=== PATIENT | female | born 1935 | race Caucasian/White ===

== ENCOUNTER 2020-10-14 19:40 | Inpatient (IN) ==
[2020-10-14 21:51] LABS: Basophils % (Auto) 0.6 % (0.0-2.0); Eosinophils # (Auto) 0.23 K/mcL (0.00-0.70); Eosinophils % (Auto) 1.5 % (0.0-7.0); Hematocrit 35.9 % (36.0-48.0); Hemoglobin 11.3 g/dL (12.0-15.0); Lymphocytes % (Auto) 12.3 % (15.0-49.0); Mean Cell Volume 90.7 fL (80.0-100.0); Mean Corpuscular HGB Conc 31.5 g/dL (31.0-36.0); Mean Platelet Volume 10.4 fL (7.4-10.4); Monocytes # (Auto) 0.93 K/mcL (0.10-0.90); Neutrophils % (Auto) 79.6 % (38.0-78.0); Platelet Count 788 K/mcL (140-440); RBC 3.96 M/mcL (4.00-5.20); Red Cell Distribution Width 16.8 % (11.5-14.5); WBC 15.4 K/mcL (4.5-11.0)
[2020-10-14 22:11] LABS: ALT/SGPT 7 U/L (<40); AST/SGOT 14 U/L (<32); Albumin 3.4 gm/dL (3.2-5.2); Alkaline Phosphatase 129 U/L (39-117); Bilirubin,Total < 0.2 mg/dL (0.1-1.0); Blood Urea Nitrogen 40 mg/dL (8-23); Carbon Dioxide 34 mmol/L (22-30); Chloride 95 mmol/L (96-108); Globulin 3.3 gm/dL (2.2-3.7); Glomerular Filtration Rate 31; Glucose 137 mg/dL (70-105)
[2020-10-15] MEDS ORDERED: morphine 2 MG/ML VIAL IV PRN ×2 (00:17→11:19)
[2020-10-15] MEDS ORDERED: ONDANSETRON 4 MG/2 ML VIAL IV PRN ×4 (00:17→11:19)
[2020-10-15] MEDS: metroNIDAZOLE 500 MG/100 ML BAG IV SCH ×4 (00:26→22:13)
--- NOTE | 2020-10-15 00:27 | Emergency Department Note ---
HPI General Chief complaint: Chest Pain Stated complaint: abdominal pain Time Seen by Provider: 10/14/20 20:36 Source: EMS Mode of arrival: EMS Limitations: no limitations History of Present Illness HPI Narrative: Narrative: Patient with a history of hypertension and CHF A. fib, CVA [facility] for an episode of nonspecific low substernal chest pain she said it developed after eating, associated with some epigastric/general upper abdominal pain, described as achy and sharp, lasted about an hour and resolved currently. No nausea no vomiting no fever no chills no shortness of breath. No genitourinary symptoms no new leg swelling Related Data Home Medications Medication Instructions Recorded Confirmed levothyroxine 75 mcg PO DAILY 05/11/16 10/15/20 acetaminophen 650 mg PO Q6H PRN 10/15/20 10/15/20 apixaban [Eliquis] 2.5 mg PO BID 10/15/20 10/15/20 bisacodyl [Dulcolax (bisacodyl)] 10 mg OR PRN PRN 10/15/20 10/15/20 gabapentin 100 mg PO TID 10/15/20 10/15/20 hydrocodone-acetaminophen 1 tab PO QHS 10/15/20 10/15/20 ipratropium-albuterol [Combivent 1 puff INHALATION DAILY 10/15/20 10/15/20 Respimat] metolazone 2.5 mg PO WEEKLY 10/15/20 10/15/20 metoprolol succinate 25 mg PO BID 10/15/20 10/15/20 morphine 1 mg PO Q2HP PRN 10/15/20 10/15/20 nitrofurantoin monohyd/m-cryst 100 mg PO BID 10/15/20 10/15/20 [Macrobid] nitroglycerin 0.4 mg SUBLINGUAL Q5M PRN 10/15/20 10/15/20 potassium chloride 20 meq PO QDAY 10/15/20 10/15/20 simethicone [Simethicone-80] 80 mg PO Q6HP PRN 10/15/20 10/15/20 Allergies Allergy/AdvReac Type Severity Reaction Status Date / Time Penicillins Allergy Intermediate Swelling Verified 10/14/20 19:41 amlodipine [From Norvasc] Allergy Unknown Verified 10/14/20 19:41 potassium chloride Allergy Unknown Verified 02/13/19 14:03 Review of Systems ROS ROS Narrative: Narrative: At least 10 systems reviewed and otherwise acutely negative except as in the [facility] Narrative Patient History Narrative: Narrative: Medical/Surgical/Family History All Active Problems Chest pain (Acute) UTI (urinary tract infection) (Acute) Weakness (Acute) Accelerated essential hypertension (Acute) Non-cardiac chest pain (Acute) Hypotension (Acute) Congestive heart failure (Acute) Acute cholecystitis (Acute) Medical History Chest pain Social History Smoking Status: Former smoker Exam Narrative Narrative: Narrative: Constitutional: normally developed, no acute distress . Head: Normocephalic, atraumatic, Eyes: No Icterus, ENT: Moist mucus membranes, Neck: Supple, Cardiac: Normal heart sounds, palpable radial and dorsalis pedis pulses, n chronic lower extremity edema Pulmonary: Normal respiratory effort. Breath sounds clear, no wheeze, rhonchi, rales, Gastrointestinal: Abdomen soft, non-distended, patient does have some mild generalized abdominal tenderness all across to her upper abdomen left upper quadrant, epigastric, right upper quadrant but negative clinical Oleary's Musculoskeletal: No gross deformities, well perfused Skin: warm, dry Neuro: Alert and orientedx1-2. General Limitations: no limitations Course Vital Signs Vital signs: Vital Signs Temperature 37.0 C 10/14/20 19:41 Pulse Rate 64 10/14/20 19:41 Respiratory Rate 20 10/14/20 19:41 Pulse Oximetry (%) 92 10/14/20 19:41 Temperature 37.0 C 10/14/20 19:41 Pulse Rate 50 L 10/15/20 00:05 Respiratory Rate 12 10/15/20 00:05 Blood Pressure 154/68 10/15/20 00:05 Pulse Oximetry (%) 93 10/15/20 00:05 [facility] MDM Narrative Medical decision making narrative: Narrative: Patient presented with that vague nonspecific episode of some brief substernal epigastric pain she reports after eating, since improved differential includes but not limited to ACS, gastritis, GERD, hepatobiliary or pancreatic disease, doubt dissection, PE. Pain currently resolved work-up was initiated. The prison gave her nitroglycerin prior to arrival CBC does show leukocytosis of 15 although this seems somewhat consistent with her previous studies done recently, will await further diagnostic results to assess for any possible acute infection Electrolytes show her known CKD creatinine baseline 1.5 LFTs bilirubin lipase within normal, Initial troponin is negative, will trend Preliminary report of her CT does show suspected acute cholecystitis, also some nonspecific findings suggestive of underlying metastatic malignancy in the thorax and abdomen and adnexa with possible mass in right breast I did discuss these findings with the patient and her daughter, has a known history of benign mass to her right breast, no known active malignancy, patient states she had a history of isolated uterine cancer years ago that was simply treated with a hysterectomy at the time. Also obtained a right upper quadrant ultrasound which does confirm findings suggestive of acute cholecystitis included cholelithiasis, sludge, gallbladder wall thickening 5.1 mm, no pericholecystic fluid, does show CBD dilation 9.8 mm Considering her presentation and the imaging results confirming acute cholecy stitis I did consult with Dr. Vargas with surgery for possible cholecystectomy, patient was also made n.p.o. and started on cefepime and Flagyl as she is allergic to Zosyn, he did request patient be admitted to medicine given her multiple comorbidities, so I have spoken with Dr. Rizo who accepts admission Patient's daughter Chiqui Fish is her primary decision maker, she can be reached at [phone]. I have updated the patient and her daughter regarding our findings and plan today and they are agreeable to plan Lab Data Result diagrams: 10/14/20 20:51 10/14/20 20:51 Labs: Lab Results 10/14/20 10/14/20 10/14/20 Range/Units 20:38 20:51 20:51 WBC 15.4 H (4.5-11.0) K/mcL RBC 3.96 L (4.00-5.20) M/mcL Hgb 11.3 L (12.0-15.0) g/dL Hct 35.9 L (36.0-48.0) % MCV 90.7 (80.0-100.0) fL MCH 28.5 (26.0-34.0) pg MCHC 31.5 (31.0-36.0) g/dL RDW 16.8 H (11.5-14.5) % Plt Count 788 H (140-440) K/mcL MPV 10.4 (7.4-10.4) fL Neut % (Auto) 79.6 H (38.0-78.0) % Lymph % (Auto) 12.3 L (15.0-49.0) % Delta % (Auto) 6.0 (1.0-12.0) % Eos % (Auto) 1.5 (0.0-7.0) % Baso % (Auto) 0.6 (0.0-2.0) % Lymph # (Auto) 1.90 (1.50-4.80) K/mcL Delta # (Auto) 0.93 H (0.10-0.90) K/mcL Eos # (Auto) 0.23 (0.00-0.70) K/mcL Baso # (Auto) 0.10 (0.00-0.20) K/mcL Absolute Neutrophils 12.28 H (1.80-8.00) K/mcL Sodium 139 (133-145) mmol/L Potassium 3.9 (3.3-5.1) mmol/L Chloride 95 L (96-108) mmol/L Carbon Dioxide 34 H (22-30) mmol/L Anion Gap 10.0 (8.0-16.0) BUN 40 H (8-23) mg/dL Creatinine 1.5 H (0.6-1.1) mg/dL POC Creatinine 2.0 H (0.6-1.2) mg/dL GFR Calculation 31 Glucose 137 H (70-105) mg/dL Calcium 9.0 (8.6-10.4) mg/dL Total Bilirubin < 0.2 (0.1-1.0) mg/dL AST 14 (<32) U/L ALT 7 (<40) U/L Alkaline Phosphatase 129 H (39-117) U/L Troponin T (<0.03) ng/mL Total Protein 6.7 (5.9-8.4) gm/dL Albumin 3.4 (3.2-5.2) gm/dL Globulin 3.3 (2.2-3.7) gm/dL Albumin/Globulin Ratio 1.0 (1.0-2.3) Lipase 42 (7-60) U/L 10/14/20 Range/Units 20:51 WBC (4.5-11.0) K/mcL RBC (4.00-5.20) M/mcL Hgb (12.0-15.0) g/dL Hct (36.0-48.0) % MCV (80.0-100.0) fL MCH (26.0-34.0) pg MCHC (31.0-36.0) g/dL RDW (11.5-14.5) % Plt Count (140-440) K/mcL MPV (7.4-10.4) fL Neut % (Auto) (38.0-78.0) % Lymph % (Auto) (15.0-49.0) % Delta % (Auto) (1.0-12.0) % Eos % (Auto) (0.0-7.0) % Baso % (Auto) (0.0-2.0) % Lymph # (Auto) (1.50-4.80) K/mcL Delta # (Auto) (0.10-0.90) K/mcL Eos # (Auto) (0.00-0.70) K/mcL Baso # (Auto) (0.00-0.20) K/mcL Absolute Neutrophils (1.80-8.00) K/mcL Sodium (133-145) mmol/L Potassium (3.3-5.1) mmol/L Chloride (96-108) mmol/L Carbon Dioxide (22-30) mmol/L Anion Gap (8.0-16.0) BUN (8-23) mg/dL Creatinine (0.6-1.1) mg/dL POC Creatinine (0.6-1.2) mg/dL GFR Calculation Glucose (70-105) mg/dL Calcium (8.6-10.4) mg/dL Total Bilirubin (0.1-1.0) mg/dL AST (<32) U/L ALT (<40) U/L Alkaline Phosphatase (39-117) U/L Troponin T 0.02 (<0.03) ng/mL Total Protein (5.9-8.4) gm/dL Albumin (3.2-5.2) gm/dL Globulin (2.2-3.7) gm/dL Albumin/Globulin Ratio (1.0-2.3) Lipase (7-60) U/L ED POC Tests ED POC Tests: TOD - SARS Antigen Negative Discharge Plan Patient/Caregiver Discharge Instructions Pt seen by EDITOR BOOK/PA only: No Clinical Impression: Acute cholecystitis Patient Disposition: Xfer As Inpt ([facility]) Follow up with: Jaime Gonzáles MD [Primary Care Provider] - Prescriptions: No Action levothyroxine 50 MCG tablet 75 mcg PO DAILY RF: 0 metoprolol succinate 25 mg Capsule,Sprinkle,Er 24hr 25 mg PO BID RF: 0 hydrocodone-acetaminophen 5-325 mg Tablet 1 tab PO QHS RF: 0 bisacodyl [Dulcolax (bisacodyl)] 10 mg Suppository 10 mg OR PRN PRN (Reason: Pain) RF: 0 gabapentin 100 mg Capsule 100 mg PO TID RF: 0 nitrofurantoin monohyd/m-cryst [Macrobid] 100 mg Capsule 100 mg PO BID RF: 0 Eliquis 2.5 mg Tablet 2.5 mg PO BID RF: 0 Combivent Respimat 20-100 mcg/actuation Mist 1 puff INHALATION DAILY RF: 0 metolazone 2.5 mg Tablet 2.5 mg PO WEEKLY RF: 0 morphine 20 mg/5 mL (4 mg/mL) Solution 1 mg PO Q2HP PRN (Reason: Pain) RF: 0 nitroglycerin 0.4 mg Tablet, Sublingual 0.4 mg SUBLINGUAL Q5M PRN (Reason: Chest Pain) RF: 0 simethicone [Simethicone-80] 80 mg Tablet,Chewable 80 mg PO Q6HP PRN (Reason: epigastric pain) RF: 0 potassium chloride 20 mEq Tablet Extended Release 20 meq PO QDAY RF: 0 acetaminophen 325 mg Capsule 650 mg PO Q6H PRN (Reason: Pain) RF: 0
[2020-10-15] MEDS: CEFEPIME 2 GM VIAL IV SCH ×4 (00:35→20:59)
[2020-10-15 02:10] LABS: INR 1.3 (0.9-1.1); Partial Thromboplastin Time 36.4 sec (20.0-37.0); Prothrombin Time 16.8 sec (11.9-14.5)
--- NOTE | 2020-10-15 07:40 | Internal Med History&Physical ---
HPI History of Present Illness Patient information: Note initiated : 10/15/20 at 7:36 am Service Date, if different from initiated Date: [] Patient: Gladis Lim a 85 y/o F admitted on 10/15/20 for abdominal pain. Chief Complaint: [] History of present illness: Ms. Lim is a 85 year old F Presents with a low chest pain/abdominal pain in the epigastric and upper abdomen described as are achy and sharp and seem to develop after eating. In the ED she was found have a leukocytosis and had a CT abdomen pelvis and a ultrasound which showed acute cholecystitis. She has a history of A. fib chronic kidney disease hypothyroidism possibly question history of stroke. Surgery was contacted and asked hospitalist to comanage given comorbidities. Review of Systems: Pertinent positives as above. Denies headache/fever/chills/nausea/vomiting/chest pain/cough/dyspnea/diarrhea. Remaining 10 point review of system reviewed negative PFSH PFSH All Active Problems Chest pain (Acute) UTI (urinary tract infection) (Acute) Weakness (Acute) Accelerated essential hypertension (Acute) Non-cardiac chest pain (Acute) Hypotension (Acute) Congestive heart failure (Acute) Acute cholecystitis (Acute) Medical History Chest pain MEDS/ALLERGIES Home Medications and Allergies Home Medications Medication Instructions Recorded Confirmed Type levothyroxine 75 mcg PO DAILY 05/11/16 10/15/20 History acetaminophen 650 mg PO Q6H PRN 10/15/20 10/15/20 History apixaban [Eliquis] 2.5 mg PO BID 10/15/20 10/15/20 History bisacodyl [Dulcolax (bisacodyl)] 10 mg [facility] PRN PRN 10/15/20 10/15/20 History gabapentin 100 mg PO TID 10/15/20 10/15/20 History hydrocodone-acetaminophen 1 tab PO QHS 10/15/20 10/15/20 History ipratropium-albuterol [Combivent 1 puff INHALATION DAILY 10/15/20 10/15/20 History Respimat] metolazone 2.5 mg PO WEEKLY 10/15/20 10/15/20 History metoprolol succinate 25 mg PO BID 10/15/20 10/15/20 History morphine 1 mg PO Q2HP PRN 10/15/20 10/15/20 History nitrofurantoin monohyd/m-cryst 100 mg PO BID 10/15/20 10/15/20 History [Macrobid] nitroglycerin 0.4 mg SUBLINGUAL Q5M PRN 10/15/20 10/15/20 History potassium chloride 20 meq PO QDAY 10/15/20 10/15/20 History simethicone [Simethicone-80] 80 mg PO Q6HP PRN 10/15/20 10/15/20 History Allergies Allergy/AdvReac Type Severity Reaction Status Date / Time Penicillins Allergy Intermediate Swelling Verified 10/14/20 19:41 amlodipine [From [facility]] Allergy Unknown Unknown Verified 10/15/20 07:41 potassium chloride Allergy Unknown Unknown Verified 10/15/20 07:41 EXAM Constitutional Vitals: Temp Pulse Resp BP Pulse Ox 97.1 F 48 L 16 132/66 96 10/15/20 04:22 10/15/20 04:22 10/15/20 04:22 10/15/20 04:22 10/15/20 04:22 Exam: General: Alert, Awake, No acute Distress Eyes/N/T: EOMI, PERRL, dMM Head/Neck: neck supple, normocephalic atraumatic CV: regular, No murmurs, normal s1/s2 Pulm: Clear b/l, no wheezing/rhonchi/rales Abd: soft, tender, +BS x4 Ext: no clubbing/cyanosis/edema Neuro: Alert, no focal deficits, moves all extremities, CN 2-12 grossly intact, symmetrical strength b/l upper/lower, sensations intact b/l upper/lower Skin: warm/dry DATA Data Completed and Pending Labs: Labs from last 24 hours 10/15/20 10/15/20 10/14/20 00:40 00:40 20:51 WBC RBC Hgb Hct MCV MCH MCHC RDW Plt Count MPV Neut % (Auto) Lymph % (Auto) [place] % (Auto) Eos % (Auto) Baso % (Auto) Lymph # (Auto) [place] # (Auto) Eos # (Auto) Baso # (Auto) Absolute Neutrophils PT 16.8 H INR 1.3 H APTT 36.4 Sodium Potassium Chloride Carbon Dioxide Anion Gap BUN Creatinine POC Creatinine GFR Calculation Glucose Calcium Total Bilirubin AST ALT Alkaline Phosphatase Troponin T 0.02 0.02 Total Protein Albumin Globulin Albumin/Globulin Ratio Lipase 10/14/20 10/14/20 10/14/20 20:51 20:51 20:38 WBC 15.4 H RBC 3.96 L Hgb 11.3 L Hct 35.9 L MCV 90.7 MCH 28.5 MCHC 31.5 RDW 16.8 H Plt Count 788 H MPV 10.4 Neut % (Auto) 79.6 H Lymph % (Auto) 12.3 L [place] % (Auto) 6.0 Eos % (Auto) 1.5 Baso % (Auto) 0.6 Lymph # (Auto) 1.90 [place] # (Auto) 0.93 H Eos # (Auto) 0.23 Baso # (Auto) 0.10 Absolute Neutrophils 12.28 H PT INR APTT Sodium 139 Potassium 3.9 Chloride 95 L Carbon Dioxide 34 H Anion Gap 10.0 BUN 40 H Creatinine 1.5 H POC Creatinine 2.0 H GFR Calculation 31 Glucose 137 H Calcium 9.0 Total Bilirubin < 0.2 AST 14 ALT 7 Alkaline Phosphatase 129 H Troponin T Total Protein 6.7 Albumin 3.4 Globulin 3.3 Albumin/Globulin Ratio 1.0 Lipase 42 A/P Narrative A/P Narrative: A: *Acute cholecystitis: *Recent UTI: *A. 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
[2020-10-15] MEDS ORDERED: 0.9 % SODIUM CHLORIDE 1,000 ML IV SCH (07:45)
--- NOTE | 2020-10-15 08:10 | Cat Scan Report ---
History: Upper epigastric pain TECHNIQUE: Patient was imaged without IV contrast due to elevated renal values, scanning from the thoracic inlet through the symphysis pubis. Sagittal and coronal reformats were created. The radiation exposure was limited using dose reduction technology. FINDINGS: Chest: There are multiple surgical clips in the region of the right lobe of the thyroid. There is a pacemaker in the left pectoral region with leads in the right atrium and right ventricle. There are two contiguous spiculated masses in the right breast. The larger measures 3.5 cm. One of these had been biopsied on 03/17/19. There are a few peripheral noncalcified nodules in both lungs. The larger abut the pleura and fissures and measure up to 5.5 mm in diameter. There is mild consolidation in the anterior basal segment of the left lower lobe with milder involvement in the inferior segment of lingula. There is no evidence pleural effusion or large lymph nodes. The heart is borderline enlarged. Calcified plaques are present in the left anterior descending coronary artery and along the wall of normal caliber aorta. A moderate size hiatus hernia is present. Abdomen and pelvis: Laterally in segment seven of the right lobe of the liver there is a 1 cm low-attenuation structure which may be a cyst. Inferiorly in segment IVb of the left lobe, just above the gallbladder there is a poorly defined soft tissue solid mass which measures approximately 4.5 cm. The gallbladder wall is abnormally thickened and measures up to 8 mm. There are no calcified stones within the lumen. Common bile duct measures up to 9 mm. This tapers to 4 mm at the level of the ampulla. No stone is seen within the duct. There is no evidence of a mass or inflammation in the pancreas. The spleen is normal in size and homogeneous. There is mild hyperplasia of the left adrenal. The right adrenal is normal. A 2 mm nonobstructing stone is present laterally in the upper pole of the left kidney. There are a few small low-attenuation cortical lesions in both kidneys which are probably cysts with partial volume averaging. No suspicious mass is seen in either kidney and there is no hydronephrosis. Moderate atherosclerotic disease is present along the wall of a normal caliber aorta. There are multiple diverticula in the descending and sigmoid colon but there is no evidence of acute diverticulitis or bowel obstruction. A cystic mass is seen in the right adnexa which measures 4.8 x 6.3 cm. This is probably arising from the ovary. The uterus has been removed. Left ovary is not visualized. No ascites or abscess are present. There are degenerative changes at multiple levels in the thoracic and lumbar spine. There is no evidence of a fracture or bone metastasis. IMPRESSION: Thickened gallbladder wall which is probably due to cholecystitis. However, wall thickening may also be seen with heart failure, liver disease and low serum albumin Scattered peripheral nodules in both lungs, right greater than left. These could be granulomata or metastasis. Solid mass in the left lobe of liver which may be a neoplasm. Two spiculated masses in the right breast which could be benign or malignant. Well-circumscribed cystic mass in the right adnexa which could be a benign or malignant ovarian neoplasm. Nonobstructing left-sided kidney stone Interpreted and Authenticated by: Leon Montaño 10/15/20
--- NOTE | 2020-10-15 08:16 | Ultrasound Report ---
History: Right upper quadrant pain, thickened gallbladder wall and left liver mass seen on preceding CT scan FINDINGS: The gallbladder wall is thickened and edematous. Measures 5 mm. Within the lumen there are numerous small gallstones. There is distal shadowing. The stones were not seen on CT, indicating the or noncalcified stones. There appear to be stones in the cystic duct. The common bile duct ranges from 5 to 9.8 mm in diameter. No stone is seen within the duct. Anterior to the gallbladder the left lobe of liver there is a solid hyperechoic irregularly-shaped mass which measures 5.5 x 5.8 x 6.1 cm. Doppler shows it is relatively hypovascular. There are vessels passing through the mass which are nondistorted. The pancreas is normal without evidence of mass, inflammation or dilatation of the duct. No ascites is seen. IMPRESSION: Cholelithiasis and cholecystitis Dilated extrahepatic bile ducts Echogenic mass in the left lobe of the liver. The lack of distortion of the vessels in this mass suggests this could be benign, possibly focal fatty infiltration. However, neoplasm cannot be excluded. Interpreted and Authenticated by: Leon Montaño 10/15/20
[2020-10-15] MEDS ORDERED: METOPROLOL SUCCINATE 25 MG TAB.XL.24H PO SCH (09:00)
[2020-10-15] MEDS ORDERED: SIMETHICONE 80 MG TAB.CHEW PO PRN ×2 (09:21→11:19)
[2020-10-15] MEDS ORDERED: BISACODYL 10 MG SUPP.RECT PR PRN ×2 (09:21→11:19)
[2020-10-15] MEDS ORDERED: POLYETHYLENE GLYCOL 3350 17 GM PACKET PO PRN ×2 (09:22→11:19)
[2020-10-15] MEDS ORDERED: SENNOSIDES 1 TABLET PO PRN ×2 (09:22→11:19)
[2020-10-15] MEDS ORDERED: LACTULOSE 20 GM/30 ML ORAL.SOL PO PRN ×2 (09:22→11:19)
[2020-10-15] MEDS ORDERED: POTASSIUM CHLORIDE 20 MEQ TABLET PO PRN ×4 (09:22→11:19)
[2020-10-15] MEDS ORDERED: IPRATROPIUM/ALBUTEROL 3 ML AMPUL.NEB NEB PRN ×2 (09:22→11:19)
[2020-10-15] MEDS ORDERED: POTASSIUM CHLORIDE 40 MEQ in DEXTROSE 5% IN WATER 500 ML IV PRN ×2 (09:22→11:19)
[2020-10-15] MEDS ORDERED: MAGNESIUM SULFATE 2 GM/50 ML BAG IV PRN ×2 (09:22→11:19)
[2020-10-15] MEDS ORDERED: ACETAMINOPHEN 325 MG TABLET PO PRN ×2 (09:22→11:19)
[2020-10-15] MEDS ORDERED: NITROGLYCERIN 0.4 MG TAB.SUBL SL PRN ×2 (09:23→11:19)
[2020-10-15] MEDS ORDERED: morphine 20 MG/ML ORAL.CONC PO PRN ×2 (09:24→11:19)
[2020-10-15] MEDS ORDERED: metroNIDAZOLE 500 MG/100 ML BAG IV SCH (10:00)
--- NOTE | 2020-10-15 10:22 | Cat Scan Report ---
History: Altered mental status with stroke symptoms TECHNIQUE: The brain was imaged without contrast in axial plane at 2.5 mm intervals. Sagittal and coronal reformats were created. The radiation exposure was limited using dose reduction technology. FINDINGS: There is moderately severe atrophy of the frontal and anterior temporal lobes with milder atrophy of the parietal lobes and cerebellar hemispheres. There is a 5.5 mm old lacunar infarct with encephalomalacia in the right external capsule. In the left gomes radiata, lateral to the head of left caudate nucleus and there is a vague low-attenuation structure measuring approximately 9 x 12 mm in size. This could be an infarct. Patient does have moderate diffuse white matter disease with confluent areas of abnormal decreased attenuation in the centrum semiovale throughout the frontal and parietal lobes. There is no evidence of a cortical infarct. No hemorrhage or mass effect are present. Ventricles are prominent but proportionate to the atrophy. There is no abnormal extra-axial fluid collection. There is no mass effect. IMPRESSION: Possible acute infarct in the left gomes radiata. Small old infarct in the right external capsule Moderately severe atrophy and diffuse white matter changes above the tentorium consistent with age-related ischemia or degeneration. Dr. Rizo was called with the report Interpreted and Authenticated by: Leon Montaño 10/15/20
[2020-10-15] MEDS: 0.9 % SODIUM CHLORIDE 1,000 ML IV SCH (11:20)
[2020-10-15 12:01] LABS: HDL Cholesterol 31 mg/dL (>40); LDL Cholesterol,Calculated 100 mg/dL (<100); Non-HDL Cholesterol 144 mg/dL (<130); Triglycerides 222 mg/dL (<150)
[2020-10-15] MEDS: 0.9 % SODIUM CHLORIDE 10 ML SYRINGE IV SCH ×2 (12:55→22:13)
[2020-10-15 13:57] LABS: Appearance,Urine CLOUDY (Clear); Bacteria,Urine FEW /hpf (0); Bilirubin,Urine Negative (Negative); Color,Urine YELLOW; Culture Indicated,Urine yes; Glucose,Urine (UA) Negative (Negative); Ketones,Urine Negative (Negative); Leukocyte Esterase,Urine 500 /ug (Negative); Mucus,Urine FEW /hpf; Nitrate,Urine Negative (Negative); Protein,Urine 30 mg/dL (Negative); Specific Gravity,Urine 1.012 (1.000-1.035); Urine Amorphous Crystals FEW /hpf; Urine Blood Negative (Negative); Urine RBC 4 /hpf (0-3); Urine Squamous Epithelial Cell 4 /hpf (0-4); Urine WBC > 182 /hpf (0-4); Urobilinogen,Urine Negative
--- NOTE | 2020-10-15 13:59 | EKG ---
[facility] Test Date: 2020-10-14 Pat Name: Gladis Lim Department: ED Room: Gender: Female Respiratory Therapy Aide: : 1935 Requested By: Patrick Galdamez Order Number: [id number] Reading MD: Wood Brower M.D. Measurements Intervals [place] Rate: 58 P: 22 IN: 172 QRS: -49 QRSD: 138 T: 53 QT: 473 QTc: 465 Interpretive Statements Sinus rhythm RBBB and LAFB Left ventricular hypertrophy NO PRIOR TRACING FOR COMPARISON Electronically Signed On 10-15-2020 13:58:57 PDT by Wood Brower M.D. /store/M0/[id number]
[2020-10-15] MEDS ORDERED: 0.9 % SODIUM CHLORIDE 10 ML SYRINGE IV SCH (14:00)
--- NOTE | 2020-10-15 14:59 | Internal Med Progress Note ---
SUBJECTIVE Subjective Patient information: Note initiated : 10/16/20 at 2:56 pm Service Date, if different from initiated Date: [] Patient: Gladis Lim 85 y/o F admitted on 10/15/20 for abdominal pain. Chief Complaint: [] Interval history: Ms. Lim is a 85 year old female with a history of A. fib, chronic kidney disease, hypothyroidism, possible history of stroke. The patient presented to the ED with a low chest pain/abdominal pain in the epigastric and upper abdomen described as are achy and sharp and seem to develop after eating. In the ED she was found have a leukocytosis and had a CT abdomen pelvis and a ultrasound which showed acute cholecystitis. Surgery was contacted and asked hospitalist to comanage given comorbidities. 10/16 General surgery planning for cholecystectomy tomorrow, holding eliquis. Discontinued Cefepime, started Ceftriaxone, continued Metronidazole. Physical Exam Head: Atraumatic, normal inspection. Eyes: normal appearance, no scleral icterus. Neck: full ROM Respiratory: no respiratory distress. Cardiovascular: normal rate and rhythm, S1, S2. GI/Abdominal: soft, tenderness in right upper quadrant, no guarding. Extremities: full range of motion, nontender. Neurological: CN II-XII intact, intact motor, intact sensation. Psychiatric: normal mood. Skin: warm, normal color Constitutional Vitals: Vital Signs Temp Pulse Resp BP Pulse Ox 97.8 F 52 L 20 120/77 96 10/15/20 12:57 10/15/20 14:01 10/15/20 14:01 10/15/20 14:01 10/15/20 14:01 Period Temp Pulse Resp BP Sys/Crawford Pulse Ox Last 24 Hr 97.1 F-98.6 F 48-64 - 101-154/53-88 90-97 Intake and Output 10/15/20 10/15/20 10/15/20 05:59 13:59 21:59 Intake Total 100 100 Output Total 200 Balance 100 -100 Weight 87.657 kg Intake & Output: Intake & Output 10/15/20 10/15/20 10/15/20 05:59 13:59 21:59 Intake Total 100 100 Output Total 200 Balance 100 -100 Weight 87.657 kg Intake: IV 100 100 Output: Urine Catheter Amount 200 Straight 200 Other: Urine Appearance Straight Cloudy Urine Color Straight Bright Yellow OBJ DATA Labs CBC & Chem 7: 10/16/20 05:00 10/16/20 05:00 Labs: Abnormal Lab Results 10/15/20 10/15/20 10/15/20 12:50 00:40 00:40 WBC RBC Hgb Hct RDW Plt Count Neut % (Auto) Lymph % (Auto) Barton # (Auto) Absolute Neutrophils PT 16.8 H INR 1.3 H Chloride Carbon Dioxide BUN Creatinine POC Creatinine Glucose Alkaline Phosphatase Triglycerides 222 H LDL Cholesterol, Calc 100 H Non-HDL Cholesterol 144 H HDL Cholesterol 31 L Urine Appearance Cloudy A Urine Protein 30 A Ur Leukocyte Esterase 500 A Urine RBC 4 H Urine WBC > 182 H Amorphous Crystals Few A Urine Bacteria Few A Urine Mucus Few A 10/14/20 10/14/20 20:51 20:51 WBC 15.4 H RBC 3.96 L Hgb 11.3 L Hct 35.9 L RDW 16.8 H Plt Count 788 H Neut % (Auto) 79.6 H Lymph % (Auto) 12.3 L Barton # (Auto) 0.93 H Absolute Neutrophils 12.28 H PT INR Chloride 95 L Carbon Dioxide 34 H BUN 40 H Creatinine 1.5 H POC Creatinine 2.0 H Glucose 137 H Alkaline Phosphatase 129 H Triglycerides LDL Cholesterol, Calc Non-HDL Cholesterol HDL Cholesterol Urine Appearance Urine Protein Ur Leukocyte Esterase Urine RBC Urine WBC Amorphous Crystals Urine Bacteria Urine Mucus Meds: Medications Acetaminophen (Acetaminophen 325 Mg Tablet) 650 mg PO Q6HP PRN PRN Reason: PAIN/FEVER > 101 Hydrocodone Bitart/Acetaminophen (Hydrocodone/Apap 5/325mg Tablet) 1 tab PO QHS YESSICA; Protocol Albuterol/Ipratropium (Ipratropium/Albuterol 3 Ml Ampul.Neb) 3 ml NEB Q4HP PRN PRN Reason: Shortness Of Breath Atorvastatin Calcium (Atorvastatin 40 Mg Tablet) 40 mg PO HS YESSICA Bisacodyl (Bisacodyl 10 Mg Supp.Rect) 10 mg [place] PRN PRN PRN Reason: Pain Cefepime HCl (Cefepime 2 Gm Vial) 2 gm IV Q8H YESSICA; Protocol Docusate Sodium (Docusate Sodium 100 Mg Capsule) 100 mg PO BID YESSICA Gabapentin (Gabapentin 100 Mg Capsule) 100 mg PO TID YESSICA Potassium Chloride 40 meq/ (Dextrose) 520 mls @ 130 mls/hr IV UD PRN PRN Reason: Potassium < 3 Sodium Chloride (Sodium Chloride 0.9%) 1,000 mls @ 84 mls/hr IV .[id number] [facility] Magnesium Sulfate (Magnesium Sulfate) 2 gm in 50 mls @ 50 mls/hr IV UD PRN PRN Reason: Magnesium </= 1.6 Metronidazole (Flagyl) 500 mg in 100 mls @ 100 mls/hr IV Q8H [facility]; Protocol Lactulose (Lactulose 20 Gm/30 Ml Oral.Kavya) 20 gm PO DAILYP PRN PRN Reason: Constipation Levothyroxine Sodium (Levothyroxine 75 Mcg Tablet) 75 mcg PO QAMAC YESSICA Metoprolol Succinate (Metoprolol Succinate 25 Mg Tab.Xl.24h) 25 mg PO BID YESSICA Morphine Sulfate (Morphine 20 Mg/Ml Oral.Conc) 1 mg PO Q2HP PRN PRN Reason: Pain Morphine Sulfate (Morphine 2 Mg/Ml Vial) 2 mg IV Q1HP PRN; Protocol PRN Reason: Per Pain Protocol Nitroglycerin (Nitroglycerin 0.4 Mg Tab.Subl) 0.4 mg SL Q5M PRN PRN Reason: Chest Pain Ondansetron HCl (Ondansetron 4 Mg/2 Ml Vial) 4 mg IV Q4HP PRN; Protocol PRN Reason: Nausea And Vomiting Ondansetron HCl (Ondansetron 4 Mg/2 Ml Vial) 4 mg IV Q4HP PRN PRN Reason: Nausea And Vomiting Polyethylene Glycol (Polyethylene Glycol 3350 17 Gm Packet) 17 gm PO DAILYP PRN PRN Reason: Constipation Potassium Chloride (Potassium Chloride 20 Meq Tablet) 40 meq PO UD PRN PRN Reason: Potssium is 3-3.5 Potassium Chloride (Potassium Chloride 20 Meq Tablet) 40 meq PO UD PRN PRN Reason: Potassium < 3 Senna (Sennosides 1 Tablet) 2 tab PO DAILYP PRN PRN Reason: Constipation Simethicone (Simethicone 80 Mg Tab.Chew) 80 mg PO Q6HP PRN PRN Reason: epigastric pain Sodium Chloride (0.9 % Sodium Chloride 10 Ml Syringe) 10 ml IV Q8 [facility] Last Admin: 10/15/20 12:55 Dose: Not Given Documented by: A/P Narrative A/P Narrative: Assessment: 85-year-old female with a history of hypertension, atrial fibrillation on chronic kidney disease 3B, hypothyroidism, possible history of strokes, cognitive impairment admitted for acute cholecystitis. *Acute cholecystitis: *Recent UTI: *A. fib w/PPM: On Eliquis/BB *CKD IIIb: *HTN: *Hypothyroidism: *Chronic pain: *h/o ?CVA: *Thrombocytosis: 2/2 reactive + chronic *Memory deficits: P: -Ceftriaxone and Flagyl -IVF while npo -General surgery following. -Hold eliquis for surgery -cont BB -PT/OT -ppx: SCD/restart Eliquis postop per surgeon Time Spent With Patient Time: Total time spent is greater than 50% in coordination of care (as documented) at patient's floor/unit and/or counseling patient:
[2020-10-15] MEDS ORDERED: GABAPENTIN 100 MG CAPSULE PO SCH (15:00)
[2020-10-15] MEDS: GABAPENTIN 100 MG CAPSULE PO SCH ×2 (15:12→21:00)
--- NOTE | 2020-10-15 18:15 | General Surgery Consult Note ---
HPI Data of Consult Consult date: 10/15/20 Requesting physician: Pratibha Vargas Primary Care Provider: Jaime Gonzáles Consult Narrative History of present illness: 85-year-old female who was admitted earlier this morning with history of acute onset of abdominal pain in the epigastric and righ t upper quadrant region after eating last evening. The pain persisted and she was seen in the emergency room. CT showed changes of acute cholecystitis and follow-up ultrasound shows slight thickening of the gallbladder wall with edema and multiple gallstones. She has been evaluated by the hospitalist and the CT of the head was done. 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 I discussed this with the radiologist and he agrees that there is no acute changes compatible with an acute infarct. Patient has been on chronic Eliquis therapy. She has been on antibiotics but still remains symptomatic. She is counseled for cholecystectomy in the morning. I have discussed this with her daughter Chiqui who agrees that she will proceed with surgery. Her number is [phone]. cc:: CC: Abel Rizo Constitutional Constitutional: Present excessive sweating, fatigue, malaise, night sweats and weakness EENT Eyes: Present irritation Ears: Present decreased hearing Nose, mouth and throat: Present abnormal hearing Cardiovascular Cardiovascular: Present chest pain with activity, dyspnea, dyspnea on exertion, lightheadedness, palpatations, pedal edema and rapid heart rate Respiratory Respiratory: Present dyspnea on exertion and pain on inspirtation Gastrointestinal Gastrointestinal: Present abdominal pain, cramping, dyspepsia, heartburn and nausea Musculoskeletal Musculoskeletal: Present abnormal gait, arthralgias, muscle cramps, muscle weakness, myalgias and stiffness Integumentary Integumentary: Present dry skin; Absent changing lesions and rash Neurological Neurological: Present abnormal gait, abnormal hearing, disequilibrium and restless legs Psychiatric Psychiatric: Present depression and memory loss Endocrine Endocrine: Present fatigue and flushing Hematologic/Lymphatic Hematologic/Lymphatic: Present other (Patient has been on chronic anticoagulant therapy); Absent easy bleeding, easy bruising and lymphadenopathy PFSH PFSH All Active Problems (Updated 10/15/20 @ 18:26 by Pratibha Vargas MD) Cerebral infarction, chronic (Acute) Cholecystitis, acute with cholelithiasis (Acute) Chest pain (Acute) UTI (urinary tract infection) (Acute) Weakness (Acute) Accelerated essential hypertension (Acute) Non-cardiac chest pain (Acute) Hypotension (Acute) Congestive heart failure (Acute) Acute cholecystitis (Acute) Medical History (Updated 10/15/20 @ 18:26 by Pratibha Vargas MD) Chest pain Surgical History (Updated 10/15/20 @ 18:21 by Pratibha Vargas MD) H/O hysterectomy for benign disease MEDS/ALLERGIES Home Medications and Allergies Home Medications Medication Instructions Recorded Confirmed Type levothyroxine 75 mcg PO DAILY 05/11/16 10/15/20 History acetaminophen 650 mg PO Q6H PRN 10/15/20 10/15/20 History apixaban [Eliquis] 2.5 mg PO BID 10/15/20 10/15/20 History bisacodyl [Dulcolax (bisacodyl)] 10 mg NE PRN PRN 10/15/20 10/15/20 History gabapentin 100 mg PO TID 10/15/20 10/15/20 History hydrocodone-acetaminophen 1 tab PO QHS 10/15/20 10/15/20 History ipratropium-albuterol [Combivent 1 puff INHALATION DAILY 10/15/20 10/15/20 History Respimat] metolazone 2.5 mg PO WEEKLY 10/15/20 10/15/20 History metoprolol succinate 25 mg PO BID 10/15/20 10/15/20 History morphine 1 mg PO Q2HP PRN 10/15/20 10/15/20 History nitrofurantoin monohyd/m-cryst 100 mg PO BID 10/15/20 10/15/20 History [Macrobid] nitroglycerin 0.4 mg SUBLINGUAL Q5M PRN 10/15/20 10/15/20 History potassium chloride 20 meq PO QDAY 10/15/20 10/15/20 History simethicone [Simethicone-80] 80 mg PO Q6HP PRN 10/15/20 10/15/20 History Allergies Allergy/AdvReac Type Severity Reaction Status Date / Time Penicillins Allergy Intermediate Swelling Verified 10/14/20 19:41 amlodipine [From Norvasc] Allergy Unknown Unknown Verified 10/15/20 07:41 potassium chloride Allergy Unknown Unknown Verified 10/15/20 07:41 Physical Examination Vital Signs Vital signs: Temp Pulse Resp BP Pulse Ox 98.8 F 57 L 21 116/63 97 10/15/20 17:01 10/15/20 18:01 10/15/20 18:01 10/15/20 18:01 10/15/20 18:01 General physical appearance General physical exam: no distress, moderate pain, chronically ill and obese Eyes Eye exam: PERRL and normal ocular movement ENT ENT exam: normal mucosa, decreased hearing and dentures (Full dentures) Head Head exam IM: Present atraumatic, normal inspection and normocephalic Neck Neck exam: no masses, no bruits, trachea midline, no lymphadenopathy and no venous distension Cardiovascular Cardiovascular exam IM: Present normal rate and rhythm, RRR, +S1, +S2 and tachycardia; Absent gallop and JVD Respiratory Respiratory exam: normal expansion, normal respiratory effort and clear to au scultation Abdomen Abdomen: Present tender (Epigastric and right upper quadrant tenderness with guarding), surgical scars and guarding Integumentary Integumentary: Present no rash, no growths and no abnormal pigmentation Neurologic Neurologic: Present normal coordination, normal sensation and other (;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0-78.0) % Lymph % (Auto) 12.3 L (15.0-49.0) % [place] # (Auto) 0.93 H (0.10-0.90) K/mcL Absolute Neutrophils 12.28 H (1.80-8.00) K/mcL PT 16.8 H (11.9-14.5) sec INR 1.3 H (0.9-1.1) Chloride 95 L (96-108) mmol/L Carbon Dioxide 34 H (22-30) mmol/L BUN 40 H (8-23) mg/dL Creatinine 1.5 H (0.6-1.1) mg/dL POC Creatinine 2.0 H (0.6-1.2) mg/dL Glucose 137 H (70-105) mg/dL Alkaline Phosphatase 129 H (39-117) U/L Triglycerides (<150) mg/dL LDL Cholesterol, Calc (<100) mg/dL Non-HDL Cholesterol (<130) mg/dL HDL Cholesterol (>40) mg/dL Urine Appearance (Clear) Urine Protein (Negative) mg/dL Ur Leukocyte Esterase (Negative) /ug Urine RBC (0-3) /hpf Urine WBC (0-4) /hpf Amorphous Crystals (None) /hpf Urine Bacteria (0) /hpf Urine Mucus (None) /hpf 10/15/20 10/15/20 Range/Units 00:40 12:50 WBC (4.5-11.0) K/mcL RBC (4.00-5.20) M/mcL Hgb (12.0-15.0) g/dL Hct (36.0-48.0) % RDW (11.5-14.5) % Plt Count (140-440) K/mcL Neut % (Auto) (38.0-78.0) % Lymph % (Auto) (15.0-49.0) % [place] # (Auto) (0.10-0.90) K/mcL Absolute Neutrophils (1.80-8.00) K/mcL PT (11.9-14.5) sec INR (0.9-1.1) Chloride (96-108) mmol/L Carbon Dioxide (22-30) mmol/L BUN (8-23) mg/dL Creatinine (0.6-1.1) mg/dL POC Creatinine (0.6-1.2) mg/dL Glucose (70-105) mg/dL Alkaline Phosphatase (39-117) U/L Triglycerides 222 H (<150) mg/dL LDL Cholesterol, Calc 100 H (<100) mg/dL Non-HDL Cholesterol 144 H (<130) mg/dL HDL Cholesterol 31 L (>40) mg/dL Urine Appearance Cloudy A (Clear) Urine Protein 30 A (Negative) mg/dL Ur Leukocyte Esterase 500 A (Negative) /ug Urine RBC 4 H (0-3) /hpf Urine WBC > 182 H (0-4) /hpf Amorphous Crystals Few A (None) /hpf Urine Bacteria Few A (0) /hpf Urine Mucus Few A (None) /hpf Diabetes panel 10/14/20 10/15/20 Range/Units 20:51 00:40 Sodium 139 (133-145) mmol/L Potassium 3.9 (3.3-5.1) mmol/L Chloride 95 L (96-108) mmol/L Carbon Dioxide 34 H (22-30) mmol/L BUN 40 H (8-23) mg/dL Creatinine 1.5 H (0.6-1.1) mg/dL Glucose 137 H (70-105) mg/dL Calcium 9.0 (8.6-10.4) mg/dL AST 14 (<32) U/L ALT 7 (<40) U/L Alkaline Phosphatase 129 H (39-117) U/L Total Protein 6.7 (5.9-8.4) gm/dL Albumin 3.4 (3.2-5.2) gm/dL Triglycerides 222 H (<150) mg/dL HDL Cholesterol 31 L (>40) mg/dL Calcium panel 10/14/20 Range/Units 20:51 Calcium 9.0 (8.6-10.4) mg/dL Albumin 3.4 (3.2-5.2) gm/dL Pituitary panel 10/14/20 Range/Units 20:51 Sodium 139 (133-145) mmol/L Potassium 3.9 (3.3-5.1) mmol/L Chloride 95 L (96-108) mmol/L Carbon Dioxide 34 H (22-30) mmol/L BUN 40 H (8-23) mg/dL Creatinine 1.5 H (0.6-1.1) mg/dL Glucose 137 H (70-105) mg/dL Calcium 9.0 (8.6-10.4) mg/dL Adrenal panel 10/14/20 Range/Units 20:51 Sodium 139 (133-145) mmol/L Potassium 3.9 (3.3-5.1) mmol/L Chloride 95 L (96-108) mmol/L Carbon Dioxide 34 H (22-30) mmol/L BUN 40 H (8-23) mg/dL Creatinine 1.5 H (0.6-1.1) mg/dL Glucose 137 H (70-105) mg/dL Calcium 9.0 (8.6-10.4) mg/dL Total Bilirubin < 0.2 (0.1-1.0) mg/dL AST 14 (<32) U/L ALT 7 (<40) U/L Alkaline Phosphatase 129 H (39-117) U/L Total Protein 6.7 (5.9-8.4) gm/dL Albumin 3.4 (3.2-5.2) gm/dL All other labs normal. A/P Assessment and plan (1) Cholecystitis, acute with cholelithiasis: Status: Acute (2) Accelerated essential hypertension: Status: Acute (3) Cerebral infarction, chronic: Status: Acute Narrative A/P Narrative: Patient is scheduled for laparoscopic cholecystectomy. It will be performed tomorrow. I have discussed it with Chiqui Fish who is her daughter. The daughter states that the patient is alert enough and she gives her own consents and signs for them. I have tried to discuss it with the patient in a way that she understands. Apixaban will be withheld for 72 hours post procedure. Time Spent With Patient Time: Total time spent is greater than 50% in coordination of care (as documented) at patient's floor/unit and/or counseling patient:
[2020-10-15] MEDS: METOPROLOL SUCCINATE 25 MG TAB.XL.24H PO SCH (20:58)
[2020-10-15] MEDS: DOCUSATE SODIUM 100 MG CAPSULE PO SCH (20:58)
[2020-10-15] MEDS ORDERED: ATORVASTATIN 40 MG TABLET PO SCH ×2 (21:00)
[2020-10-15] MEDS ORDERED: HYDROcodone/APAP 5/325MG TABLET PO SCH ×2 (21:00)
[2020-10-15] MEDS ORDERED: DOCUSATE SODIUM 100 MG CAPSULE PO SCH (21:00)
[2020-10-16] MEDS: 0.9 % SODIUM CHLORIDE 1,000 ML IV SCH ×3 (00:15→15:44)
[2020-10-16] MEDS: CEFEPIME 2 GM VIAL IV SCH (05:35)
[2020-10-16] MEDS: 0.9 % SODIUM CHLORIDE 10 ML SYRINGE IV SCH ×3 (05:35→21:53)
[2020-10-16 06:56] LABS: Basophils # (Auto) 0.09 K/mcL (0.00-0.20); Basophils % (Auto) 0.9 % (0.0-2.0); Eosinophils # (Auto) 0.33 K/mcL (0.00-0.70); Eosinophils % (Auto) 3.2 % (0.0-7.0); Hematocrit 33.6 % (36.0-48.0); Hemoglobin 10.3 g/dL (12.0-15.0); Lymphocytes # (Auto) 1.29 K/mcL (1.50-4.80); Lymphocytes % (Auto) 12.4 % (15.0-49.0); Mean Cell Volume 91.3 fL (80.0-100.0); Mean Corpuscular HGB Conc 30.7 g/dL (31.0-36.0); Mean Platelet Volume 10.6 fL (7.4-10.4); Monocytes # (Auto) 0.61 K/mcL (0.10-0.90); Monocytes % (Auto) 5.9 % (1.0-12.0); Neutrophils % (Auto) 77.6 % (38.0-78.0); Platelet Count 575 K/mcL (140-440); RBC 3.68 M/mcL (4.00-5.20); Red Cell Distribution Width 16.9 % (11.5-14.5); WBC 10.4 K/mcL (4.5-11.0)
[2020-10-16] MEDS ORDERED: LEVOTHYROXINE 50 MCG TABLET PO SCH (07:30)
[2020-10-16] MEDS ORDERED: LEVOTHYROXINE 75 MCG TABLET PO SCH (07:30)
[2020-10-16] MEDS: METOPROLOL SUCCINATE 25 MG TAB.XL.24H PO SCH ×2 (07:35→21:52)
[2020-10-16] MEDS: metroNIDAZOLE 500 MG/100 ML BAG IV SCH ×4 (07:35→21:52)
[2020-10-16] MEDS: GABAPENTIN 100 MG CAPSULE PO SCH ×3 (07:35→21:51)
[2020-10-16 07:37] LABS: ALT/SGPT < 5 U/L (<40); AST/SGOT 10 U/L (<32); Alkaline Phosphatase 101 U/L (39-117); Bilirubin,Direct < 0.2 mg/dL (0-0.3); Bilirubin,Total 0.2 mg/dL (0.1-1.0); Blood Urea Nitrogen 32 mg/dL (8-23); Calcium 8.5 mg/dL (8.6-10.4); Carbon Dioxide 33 mmol/L (22-30); Chloride 107 mmol/L (96-108); Globulin 3.1 gm/dL (2.2-3.7); Glomerular Filtration Rate 37; Glucose 87 mg/dL (70-105); Lactate Dehydrogenase 179 U/L (135-225); Phosphorous 3.1 mg/dL (2.5-4.5); Triglycerides 141 mg/dL (<150)
[2020-10-16] MEDS: DOCUSATE SODIUM 100 MG CAPSULE PO SCH ×2 (09:01→21:52)
[2020-10-16] MEDS ORDERED: MAGNESIUM SULFATE 2 GM/50 ML BAG IV ONE (12:20)
[2020-10-16] MEDS ORDERED: ONDANSETRON 4 MG/2 ML VIAL ONE (12:20)
[2020-10-16] MEDS ORDERED: fentaNYL 100 MCG/2 ML VIAL IV ONE (12:20)
[2020-10-16] MEDS ORDERED: PROPOFOL 200 MG/20 ML VIAL IV ONE (12:20)
[2020-10-16] MEDS ORDERED: LIDOCAINE HCL/PF 100 MG/5 ML SYRINGE IV ONE (12:20)
[2020-10-16] MEDS ORDERED: SUGAMMADEX SODIUM 200 MG/2 ML VIAL IV ONE (12:20)
[2020-10-16] MEDS ORDERED: ROCURONIUM 10 MG/ML ML IV ONE (12:20)
[2020-10-16] MEDS ORDERED: ePHEDrine 50 MG/ML AMPUL IV ONE (12:20)
[2020-10-16] MEDS ORDERED: DEXAMETHASONE 10 MG/ML VIAL ONE (12:20)
[2020-10-16] MEDS ORDERED: KETAMINE 50 MG/ML ML ONE (12:20)
[2020-10-16] MEDS ORDERED: cefTRIAXone 2 GM in DEXTROSE 5% IN WATER 50 ML IV SCH (12:45)
[2020-10-16] MEDS ORDERED: NALOXONE HCL 0.4 MG/ML VIAL IV PRN (13:03)
[2020-10-16] MEDS ORDERED: diphenhydrAMINE 50 MG/ML VIAL IV PRN (13:03)
[2020-10-16] MEDS ORDERED: ACETAMINOPHEN 1,000 MG/100 ML BAG IV ONE ×2 (13:03→15:35)
[2020-10-16] MEDS ORDERED: PROMETHAZINE 25 MG/ML VIAL IV PRN (13:03)
[2020-10-16] MEDS ORDERED: IPRATROPIUM/ALBUTEROL 3 ML AMPUL.NEB NEB PRN ×2 (13:03→15:35)
[2020-10-16] MEDS ORDERED: LACTATED RINGERS 250 ML IV PRN (13:03)
[2020-10-16] MEDS ORDERED: ONDANSETRON 4 MG/2 ML VIAL IV PRN (13:03)
[2020-10-16] MEDS ORDERED: LACTATED RINGERS 1,000 ML IV SCH (13:15)
--- NOTE | 2020-10-16 13:44 | Brief Operative Note ---
Brief Operative Note Date of procedure: 10/16/20 Pre-op diagnosis: acute cholecystitis with cholelithiasis Post-op diagnosis: other (acute cholecystitis with cholelithiasis; chronic inflammatory perihepatic scarring) Procedure: LAPAROSCOPIC CHOLECYSTECTOMY Grafts/Implants: No (RAHEL DRAIN X1 IN SUBHEPATIC SPACE) Anesthesia: GETA Findings: SEVERELY INFLAMMED GALLBLADDER WITH ACUTE AND CHRONIC PERIHEPATIC SCARRING;GALLSTONES Complications: none Surgeon: Pratibha Vargas Estimated blood loss (cc): 50 Specimens Removed/Pathology: other (GALLBLADDER) Condition: stable Disposition: PACU
[2020-10-16] MEDS: fentaNYL 100 MCG/2 ML VIAL IV PRN ×4 (14:00→14:56)
[2020-10-16] MEDS: MEPERIDINE 25 MG/ML VIAL IV PRN ×2 (14:20→15:07)
[2020-10-16] MEDS ORDERED: 0.9 % SODIUM CHLORIDE 250 ML IV SCH (15:35)
[2020-10-16] MEDS ORDERED: POTASSIUM CHLORIDE 20 MEQ TABLET PO PRN (15:35)
[2020-10-16] MEDS ORDERED: POTASSIUM CHLORIDE 40 MEQ in DEXTROSE 5% IN WATER 500 ML IV PRN (15:35)
[2020-10-16] MEDS ORDERED: SENNOSIDES 1 TABLET PO PRN (15:35)
[2020-10-16] MEDS ORDERED: morphine 20 MG/ML ORAL.CONC PO PRN (15:35)
[2020-10-16] MEDS ORDERED: POLYETHYLENE GLYCOL 3350 17 GM PACKET PO PRN (15:35)
[2020-10-16] MEDS ORDERED: SIMETHICONE 80 MG TAB.CHEW PO PRN (15:35)
[2020-10-16] MEDS ORDERED: MAGNESIUM SULFATE 2 GM/50 ML BAG IV PRN (15:35)
[2020-10-16] MEDS ORDERED: ACETAMINOPHEN 325 MG TABLET PO PRN (15:35)
[2020-10-16] MEDS ORDERED: NITROGLYCERIN 0.4 MG TAB.SUBL SL PRN (15:35)
[2020-10-16] MEDS: ONDANSETRON 4 MG/2 ML VIAL IV PRN (15:54)
[2020-10-16] MEDS: morphine 2 MG/ML VIAL IV PRN ×4 (15:54→21:52)
[2020-10-16] MEDS ORDERED: cefTRIAXone 2 GM in DEXTROSE 5% IN WATER 50 ML IV ONE (17:00)
[2020-10-16 19:10] LABS: Basophils # (Auto) 0.08 K/mcL (0.00-0.20); Basophils % (Auto) 0.4 % (0.0-2.0); Eosinophils # (Auto) 0.04 K/mcL (0.00-0.70); Eosinophils % (Auto) 0.2 % (0.0-7.0); Hematocrit 35.1 % (36.0-48.0); Hemoglobin 10.8 g/dL (12.0-15.0); Lymphocytes # (Auto) 0.55 K/mcL (1.50-4.80); Lymphocytes % (Auto) 2.5 % (15.0-49.0); Mean Cell Volume 92.6 fL (80.0-100.0); Mean Corpuscular HGB Conc 30.8 g/dL (31.0-36.0); Mean Platelet Volume 10.4 fL (7.4-10.4); Monocytes # (Auto) 0.36 K/mcL (0.10-0.90); Monocytes % (Auto) 1.7 % (1.0-12.0); Neutrophils % (Auto) 95.2 % (38.0-78.0); Platelet Count 625 K/mcL (140-440); RBC 3.79 M/mcL (4.00-5.20); Red Cell Distribution Width 16.9 % (11.5-14.5); WBC 21.8 K/mcL (4.5-11.0)
[2020-10-17] MEDS: morphine 2 MG/ML VIAL IV PRN ×9 (00:18→22:21)
[2020-10-17] MEDS: 0.9 % SODIUM CHLORIDE 10 ML SYRINGE IV SCH ×3 (05:19→22:21)
[2020-10-17] MEDS: metroNIDAZOLE 500 MG/100 ML BAG IV SCH ×3 (05:19→21:35)
[2020-10-17] MEDS: 0.9 % SODIUM CHLORIDE 1,000 ML IV SCH ×3 (06:24→19:17)
[2020-10-17 07:48] LABS: Basophils # (Auto) 0.06 K/mcL (0.00-0.20); Basophils % (Auto) 0.3 % (0.0-2.0); Eosinophils # (Auto) 0 K/mcL (0.00-0.70); Eosinophils % (Auto) 0 % (0.0-7.0); Hematocrit 32.7 % (36.0-48.0); Hemoglobin 9.8 g/dL (12.0-15.0); Lymphocytes % (Auto) 3.1 % (15.0-49.0); Mean Cell Volume 95.9 fL (80.0-100.0); Mean Platelet Volume 10.6 fL (7.4-10.4); Monocytes # (Auto) 1.41 K/mcL (0.10-0.90); Monocytes % (Auto) 6.3 % (1.0-12.0); Neutrophils % (Auto) 90.3 % (38.0-78.0); Platelet Count 689 K/mcL (140-440); RBC 3.41 M/mcL (4.00-5.20); Red Cell Distribution Width 17.1 % (11.5-14.5); WBC 22.4 K/mcL (4.5-11.0)
[2020-10-17] MEDS: DOCUSATE SODIUM 100 MG CAPSULE PO SCH ×3 (08:11→20:06)
[2020-10-17] MEDS: LEVOTHYROXINE 75 MCG TABLET PO SCH (08:11)
[2020-10-17] MEDS: GABAPENTIN 100 MG CAPSULE PO SCH ×3 (08:11→20:06)
[2020-10-17 08:13] LABS: ALT/SGPT 13 U/L (<40); AST/SGOT 37 U/L (<32); Alkaline Phosphatase 100 U/L (39-117); Bilirubin,Total < 0.2 mg/dL (0.1-1.0); Blood Urea Nitrogen 26 mg/dL (8-23); Calcium 8.2 mg/dL (8.6-10.4); Carbon Dioxide 25 mmol/L (22-30); Chloride 108 mmol/L (96-108); Globulin 3.1 gm/dL (2.2-3.7); Glomerular Filtration Rate 37; Glucose 125 mg/dL (70-105)
[2020-10-17] MEDS: cefTRIAXone 2 GM in DEXTROSE 5% IN WATER 50 ML IV SCH (09:51)
[2020-10-17] MEDS: METOPROLOL SUCCINATE 25 MG TAB.XL.24H PO SCH (10:49)
--- NOTE | 2020-10-17 12:27 | Internal Med Progress Note ---
SUBJECTIVE Subjective Patient information: Note initiated : 10/17/20 at 12:25 pm Service Date, if different from initiated Date: [] Patient: Gladis Lim 85 y/o F admitted on 10/15/20 for abdominal pain. Chief Complaint: [] Interval history: Ms. Lim is a 85 year old female with a history of A. fib, chronic kidney disease, hypothyroidism, possible history of stroke. The patient presented to the ED with a low chest pain/abdominal pain in the epigastric and upper abdomen described as are achy and sharp and seem to develop after eating. In the ED she was found have a leukocytosis and had a CT abdomen pelvis and a ultrasound which showed acute cholecystitis. Surgery was contacted and asked hospitalist to comanage given comorbidities. 10/16 General surgery planning for cholecystectomy tomorrow, holding eliquis. Discontinued Cefepime, started Ceftriaxone, continued Metronidazole. 10/17 Doing ok post op, attempted to call Daughter but no answer. Physical Exam Head: Atraumatic, normal inspection. Eyes: normal appearance, no scleral icterus. Neck: full ROM Respiratory: no respiratory distress. Cardiovascular: normal rate and rhythm, S1, S2. GI/Abdominal: abdominal binder, abdominal drain, diffuse abdominal tenderness Extremities: full range of motion, nontender. Neurological: CN II-XII intact, intact motor, intact sensation. Psychiatric: impaired cognition Skin: warm, normal color Constitutional Vitals: Vital Signs Temp Pulse Resp BP Pulse Ox 97.3 F 65 15 122/66 94 10/17/20 12:01 10/17/20 12:01 10/17/20 12:01 10/17/20 12:01 10/17/20 12:01 Period Temp Pulse Resp BP Sys/Crawford Pulse Ox Last 24 Hr 96.7 F-98.2 F 56-67 11-23 94-162/52-71 90-98 Intake and Output 10/16/20 10/17/20 10/17/20 21:59 05:59 13:59 Intake Total 500 1270 150 Output Total 50 5 Balance 450 1265 150 Weight 87.543 kg Intake & Output: Intake & Output 10/16/20 10/17/20 10/17/20 21:59 05:59 13:59 Intake Total 500 1270 150 Output Total 50 5 Balance 450 1265 150 Weight 87.543 kg Intake: IV 200 1150 150 Sodium Chloride 0.9% 1,000 ml @ 1000 84 mls/hr IV .[id number] [facility] Rx#: [id number] Rocephin 2 gm In Dextrose 5% in 50 50 Water 50 ml @ 100 mls/hr IV DAILY [facility] Rx#:[id number] Oral 0 120 IV - Manual Only 300 Output: Drainage 50 Abdomen 50 Void Amount 0 # of times incontinent of urine 5 Other: Stool Size Small Stool Color Brown Stool Consistency Soft # of times incontinent of 1 Bowels OBJ DATA Labs CBC & Chem 7: 10/17/20 06:47 10/17/20 06:41 Labs: Abnormal Lab Results 10/17/20 10/17/20 10/16/20 06:47 06:41 17:59 WBC 22.4 H 21.8 H RBC 3.41 L 3.79 L Hgb 9.8 L 10.8 L Hct 32.7 L 35.1 L MCHC 30.0 L 30.8 L RDW 17.1 H 16.9 H Plt Count 689 H 625 H MPV 10.6 H Neut % (Auto) 90.3 H 95.2 H Lymph % (Auto) 3.1 L 2.5 L Lymph # (Auto) 0.70 L 0.55 L [place] # (Auto) 1.41 H Absolute Neutrophils 20.27 H 20.77 H PT INR Sodium Chloride Carbon Dioxide Anion Gap BUN 26 H Creatinine 1.3 H POC Creatinine Glucose 125 H Uric Acid Calcium 8.2 L Magnesium AST 37 H Alkaline Phosphatase Albumin 3.0 L Triglycerides LDL Cholesterol, Calc Non-HDL Cholesterol HDL Cholesterol Urine Appearance Urine Protein Ur Leukocyte Esterase Urine RBC Urine WBC Amorphous Crystals Urine Bacteria Urine Mucus 10/16/20 10/16/20 10/15/20 05:00 05:00 12:50 WBC RBC 3.68 L Hgb 10.3 L Hct 33.6 L MCHC 30.7 L RDW 16.9 H Plt Count 575 H MPV 10.6 H Neut % (Auto) Lymph % (Auto) 12.4 L Lymph # (Auto) 1.29 L [place] # (Auto) Absolute Neutrophils 8.09 H PT INR Sodium 147 H Chloride Carbon Dioxide 33 H Anion Gap 7.0 L BUN 32 H Creatinine 1.3 H POC Creatinine Glucose Uric Acid 12.0 H Calcium 8.5 L Magnesium 2.6 H AST Alkaline Phosphatase Albumin 3.0 L Triglycerides LDL Cholesterol, Calc Non-HDL Cholesterol HDL Cholesterol Urine Appearance Cloudy A Urine Protein 30 A Ur Leukocyte Esterase 500 A Urine RBC 4 H Urine WBC > 182 H Amorphous Crystals Few A Urine Bacteria Few A Urine Mucus Few A 10/15/20 10/15/20 10/14/20 00:40 00:40 20:51 WBC RBC Hgb Hct MCHC RDW Plt Count MPV Neut % (Auto) Lymph % (Auto) Lymph # (Auto) [place] # (Auto) Absolute Neutrophils PT 16.8 H INR 1.3 H Sodium Chloride 95 L Carbon Dioxide 34 H Anion Gap BUN 40 H Creatinine 1.5 H POC Creatinine 2.0 H Glucose 137 H Uric Acid Calcium Magnesium AST Alkaline Phosphatase 129 H Albumin Triglycerides 222 H LDL Cholesterol, Calc 100 H Non-HDL Cholesterol 144 H HDL Cholesterol 31 L Urine Appearance Urine Protein Ur Leukocyte Esterase Urine RBC Urine WBC Amorphous Crystals Urine Bacteria Urine Mucus 10/14/20 20:51 WBC 15.4 H RBC 3.96 L Hgb 11.3 L Hct 35.9 L MCHC RDW 16.8 H Plt Count 788 H MPV Neut % (Auto) 79.6 H Lymph % (Auto) 12.3 L Lymph # (Auto) [place] # (Auto) 0.93 H Absolute Neutrophils 12.28 H PT INR Sodium Chloride Carbon Dioxide Anion Gap BUN Creatinine POC Creatinine Glucose Uric Acid Calcium Magnesium AST Alkaline Phosphatase Albumin Triglycerides LDL Cholesterol, Calc Non-HDL Cholesterol HDL Cholesterol Urine Appearance Urine Protein Ur Leukocyte Esterase Urine RBC Urine WBC Amorphous Crystals Urine Bacteria Urine Mucus Meds: Medications Acetaminophen (Acetaminophen 325 Mg Tablet) 650 mg PO Q6HP PRN PRN Reason: PAIN/FEVER > 101 Albuterol/Ipratropium (Ipratropium/Albuterol 3 Ml Ampul.Neb) 3 ml NEB Q4HP PRN PRN Reason: Shortness Of Breath Docusate Sodium (Docusate Sodium 100 Mg Capsule) 100 mg PO BID [facility] Last Admin: 10/17/20 08:24 Dose: Not Given Documented by: Gabapentin (Gabapentin 100 Mg Capsule) 100 mg PO TID [facility] Last Admin: 10/17/20 08:11 Dose: 100 mg Documented by: Sodium Chloride (Sodium Chloride 0.9%) 1,000 mls @ 84 mls/hr IV .[id number] [facility] Last Admin: 10/17/20 07:43 Dose: 84 mls/hr Documented by: Ceftriaxone Sodium 2 gm/ (Dextrose) 50 mls @ 100 mls/hr IV DAILY [facility]; Protocol Last Infusion: 10/17/20 10:21 Dose: Infused Documented by: Magnesium Sulfate (Magnesium Sulfate) 2 gm in 50 mls @ 50 mls/hr IV UD PRN PRN Reason: Magnesium </= 1.6 Metronidazole (Flagyl) 500 mg in 100 mls @ 100 mls/hr IV Q8H [facility]; Protocol Last Infusion: 10/17/20 06:19 Dose: Infused Documented by: Potassium Chloride 40 meq/ (Dextrose) 520 mls @ 130 mls/hr IV UD PRN PRN Reason: Potassium < 3 Levothyroxine Sodium (Levothyroxine 75 Mcg Tablet) 75 mcg PO QAMAC [facility] Last Admin: 10/17/20 08:11 Dose: 75 mcg Documented by: Metoprolol Succinate (Metoprolol Succinate 25 Mg Tab.Xl.24h) 25 mg PO BID [facility] Last Admin: 10/17/20 10:49 Dose: Not Given Documented by: Morphine Sulfate (Morphine 20 Mg/Ml Oral.Conc) 1 mg PO Q2HP PRN PRN Reason: Pain Morphine Sulfate (Morphine 2 Mg/Ml Vial) 2 mg IV Q1HP PRN; Protocol PRN Reason: Per Pain Protocol Last Admin: 10/17/20 11:46 Dose: 2 mg Documented by: Nitroglycerin (Nitroglycerin 0.4 Mg Tab.Subl) 0.4 mg SL Q5M PRN PRN Reason: Chest Pain Ondansetron HCl (Ondansetron 4 Mg/2 Ml Vial) 4 mg IV Q4HP PRN; Protocol PRN Reason: Nausea And Vomiting Last Admin: 10/16/20 15:54 Dose: 4 mg Documented by: Polyethylene Glycol (Polyethylene Glycol 3350 17 Gm Packet) 17 gm PO DAILYP PRN PRN Reason: Constipation Potassium Chloride (Potassium Chloride 20 Meq Tablet) 40 meq PO UD PRN PRN Reason: Potssium is 3-3.5 Senna (Sennosides 1 Tablet) 2 tab PO DAILYP PRN PRN Reason: Constipation Simethicone (Simethicone 80 Mg Tab.Chew) 80 mg PO Q6HP PRN PRN Reason: epigastric pain Sodium Chloride (0.9 % Sodium Chloride 10 Ml Syringe) 10 ml IV Q8 [facility] Last Admin: 10/17/20 05:19 Dose: 10 ml Documented by: A/P Narrative A/P Narrative: Assessment: 85-year-old female with a history of hypertension, atrial fibrillation on chronic kidney disease 3B, hypothyroidism, possible history of strokes, cognitive impairment admitted for acute cholecystitis. The patient had a laparoscopic cholecystectomy on 10/16/20. *Acute cholecystitis: *Recent UTI: *A. fib w/PPM: On Eliquis/BB *CKD IIIb: *HTN: *Hypothyroidism: *Chronic pain: *h/o ?CVA: *Thrombocytosis: 2/2 reactive + chronic *Memory deficits: P: -Ceftriaxone and Flagyl -IVF while npo -General surgery following. -Hold eliquis for surgery -cont BB -PT/OT -ppx: SCD/restart Eliquis postop per surgeon Time Spent With Patient Time: Total time spent is greater than 50% in coordination of care (as documented) at patient's floor/unit and/or counseling patient:
[2020-10-17] MEDS: ACETAMINOPHEN 650 MG/65 ML BAG IV PRN ×2 (13:50→20:06)
--- NOTE | 2020-10-17 14:34 | General Surgery Progress Note ---
SUBJECTIVE Subjective Patient information: Note initiated : 10/17/20 at 2:27 pm Service Date, if different from initiated Date: [] Patient: Gladis Lim 85 y/o F admitted on 10/15/20 for abdominal pain. Chief Complaint: [] Principal diagnosis: Postoperative cholecystectomy Interval history: Patient is more delirious than on yesterday. She has been afebrile. She does not respond to questions appropriately. LFTs are normal. Potassium 4.1, BUN 26, creatinine 1.3, white blood count 22.4, hemoglobin 9.8, hematocrit 32.7. BERNICE drainage is bloody but small volume. Constitutional Vitals: Vital Signs Temp Pulse Resp BP Pulse Ox 97.3 F 65 15 122/66 94 10/17/20 12:01 10/17/20 12:01 10/17/20 12:01 10/17/20 12:01 10/17/20 12:01 Period Temp Pulse Resp BP Sys/Crawford Pulse Ox Last 24 Hr 96.8 F-98.2 F 56-67 11-23 94-138/52-71 90-98 Intake and Output 10/17/20 10/17/20 10/17/20 05:59 13:59 21:59 Intake Total 1270 150 Output Total 5 1 1 Balance 1265 149 -1 Intake & Output: Intake & Output 10/17/20 10/17/20 10/17/20 05:59 13:59 21:59 Intake Total 1270 150 Output Total 5 1 1 Balance 1265 149 -1 Intake: IV 1150 150 Sodium Chloride 0.9% 1,000 ml @ 1000 84 mls/hr IV .[id number] [facility] Rx#: [id number] Rocephin 2 gm In Dextrose 5% in 50 50 Water 50 ml @ 100 mls/hr IV DAILY [facility] Rx#:[id number] Oral 120 Output: # of times incontinent of urine 5 1 1 Other: Stool Size Small Stool Color Brown Stool Consistency Soft # Voids 1 1 # of times incontinent of 1 Bowels Head Head exam: Present atraumatic, normal inspection and normocephalic Eye Eye exam: Present EOMI and normal appearance Pupils: Present PERRL ENT ENT exam: Present mucous membranes moist, normal exam and normal oropharynx Neck Neck exam: Present full ROM and normal inspection; Absent lymphadenopathy, tenderness and thyromegaly Respiratory Respiratory exam: Present normal respiratory exam and CTAB; Absent respiratory distress and wheezes Cardiovascular Cardiovascular exam: Present normal rate and rhythm, gallop, JVD, RRR, +S1 and +S2 GI/Abdominal GI/Abdominal exam: Present normal bowel sounds; Absent soft, distended and guarding Extremities Exam Extremities exam: Present calf tenderness, full ROM, normal capillary refill, normal inspection, pedal edema and Foot pink and warm Back Exam Back exam: Present CVA tenderness (L) and CVA tenderness (R) Neurological Exam Neurological exam: Present altered (Mental status is altered) and reflexes normal Psychiatric Psychiatric exam: Present anxious, depressed and manic Skin Skin exam: Present intact, normal color, petechiae, rash, urticaria and vesicles A/P Assessment and plan (1) Cholecystitis, acute with cholelithiasis: Status: Acute (2) Accelerated essential hypertension: Status: Acute (3) Cerebral infarction, chronic: Status: Acute Narrative A/P Narrative: Continue present therapy Monitor white blood count closely monitor p.o. intake Time Spent With Patient Time: Total time spent is greater than 50% in coordination of care (as documented) at patient's floor/unit and/or counseling patient:
[2020-10-18] MEDS: ACETAMINOPHEN 650 MG/65 ML BAG IV PRN ×3 (01:41→15:35)
[2020-10-18] MEDS: metroNIDAZOLE 500 MG/100 ML BAG IV SCH ×3 (05:50→21:04)
[2020-10-18 05:58] LABS: Basophils # (Auto) 0.05 K/mcL (0.00-0.20); Basophils % (Auto) 0.4 % (0.0-2.0); Eosinophils % (Auto) 0.7 % (0.0-7.0); Hematocrit 27.7 % (36.0-48.0); Hemoglobin 8.5 g/dL (12.0-15.0); Lymphocytes # (Auto) 0.92 K/mcL (1.50-4.80); Lymphocytes % (Auto) 6.8 % (15.0-49.0); Mean Cell Volume 93.9 fL (80.0-100.0); Mean Corpuscular HGB Conc 30.7 g/dL (31.0-36.0); Mean Platelet Volume 10.8 fL (7.4-10.4); Monocytes # (Auto) 0.87 K/mcL (0.10-0.90); Monocytes % (Auto) 6.4 % (1.0-12.0); Neutrophils % (Auto) 85.7 % (38.0-78.0); Platelet Count 560 K/mcL (140-440); RBC 2.95 M/mcL (4.00-5.20); Red Cell Distribution Width 17.6 % (11.5-14.5); WBC 13.5 K/mcL (4.5-11.0)
[2020-10-18] MEDS: 0.9 % SODIUM CHLORIDE 10 ML SYRINGE IV SCH ×3 (06:15→21:04)
[2020-10-18 06:20] LABS: ALT/SGPT 13 U/L (<40); AST/SGOT 32 U/L (<32); Albumin 2.9 gm/dL (3.2-5.2); Albumin/Globulin Ratio 1.2 (1.0-2.3); Alkaline Phosphatase 118 U/L (39-117); Bilirubin,Total < 0.2 mg/dL (0.1-1.0); Blood Urea Nitrogen 27 mg/dL (8-23); Calcium 7.8 mg/dL (8.6-10.4); Carbon Dioxide 28 mmol/L (22-30); Chloride 107 mmol/L (96-108); Globulin 2.5 gm/dL (2.2-3.7); Glomerular Filtration Rate 34; Glucose 105 mg/dL (70-105)
[2020-10-18] MEDS ORDERED: POTASSIUM CHLORIDE 20 MEQ TABLET PO ONE (07:08)
[2020-10-18] MEDS: DOCUSATE SODIUM 100 MG CAPSULE PO SCH ×2 (08:12→21:04)
[2020-10-18] MEDS: LEVOTHYROXINE 75 MCG TABLET PO SCH (08:12)
[2020-10-18] MEDS: GABAPENTIN 100 MG CAPSULE PO SCH ×3 (08:12→21:04)
[2020-10-18] MEDS: cefTRIAXone 2 GM in DEXTROSE 5% IN WATER 50 ML IV SCH (09:18)
[2020-10-18] MEDS: morphine 2 MG/ML VIAL IV PRN (09:27)
[2020-10-18] MEDS: 0.9 % SODIUM CHLORIDE 1,000 ML IV SCH ×2 (11:56→16:20)
--- NOTE | 2020-10-18 13:00 | General Surgery Progress Note ---
SUBJECTIVE Subjective Patient information: Note initiated : 10/18/20 at 12:56 pm Service Date, if different from initiated Date: [] Patient: Gladis Lim 85 y/o F admitted on 10/15/20 for abdominal pain. Chief Complaint: [] Principal diagnosis: Postoperative cholecystectomy Interval history: Patient is clinically stable and is more alert and aware. She is able to communicate and answer questions appropriately. Her pain is not adequately controlled so her morphine will be increased. Serum potassium 3.2, BUN 27, creatinine 1.4, bilirubin 0.2, alk phos PT and OT are normal; white blood count 13.5, hemoglobin 8.5, hematocrit 27.7. Constitutional Vitals: Vital Signs Temp Pulse Resp BP Pulse Ox 97.4 F 59 L 19 126/66 99 10/18/20 12:01 10/18/20 08:01 10/18/20 12:01 10/18/20 12:01 10/18/20 12:01 Period Temp Pulse Resp BP Sys/Crawford Pulse Ox Last 24 Hr 97.3 F-98.4 F 53-68 10-20 90-126/41-95 84-100 Intake and Output 10/17/20 10/18/20 10/18/20 21:59 05:59 13:59 Intake Total 5078 605 5226 Output Total 5 5 100 Balance 2534 971 1943 Weight 198 lb 9.6 oz Intake & Output: Intake & Output 10/17/20 10/18/20 10/18/20 21:59 05:59 13:59 Intake Total 2809 748 6782 Output Total 5 5 100 Balance 9125 108 2191 Weight 198 lb 9.6 oz Intake: IV 6221 372 9453 Sodium Chloride 0.9% 1,000 ml @ 970 1000 84 mls/hr IV .[id number] [facility] Rx#: [id number] Rocephin 2 gm In Dextrose 5% in 50 Water 50 ml @ 100 mls/hr IV DAILY [facility] Rx#:[id number] Oral 120 600 Output: Drainage 100 Abdomen 100 Drainage 2 2 Abdomen 2 2 # of times incontinent of urine 3 3 Other: Meal Lunch Percent of Meal Consumed 100% Feeding Ability Total Assistance # Voids 1 # Bowel Movements 0 Eye Eye exam: Present EOMI and normal appearance Pupils: Present PERRL Additional comments: Decreased vision in the left eye ENT ENT exam: Present mucous membranes moist, normal exam and normal oropharynx Respiratory Respiratory exam: Present normal respiratory exam and CTAB; Absent respiratory distress and wheezes GI/Abdominal GI/Abdominal exam: Present normal bowel sounds; Absent soft, distended and guarding Extremities Exam Extremities exam: Present calf tenderness, full ROM, normal capillary refill, normal inspection, pedal edema and Foot pink and warm Neurological Exam Neurological exam: Present altered (Mental status is altered) and reflexes normal Psychiatric Psychiatric exam: Present anxious, depressed and manic Skin Skin exam: Present intact, normal color, petechiae, rash, urticaria and vesicles A/P Assessment and plan (1) Cholecystitis, acute with cholelithiasis: Status: Acute (2) Accelerated essential hypertension: Status: Acute (3) Cerebral infarction, chronic: Status: Acute Narrative A/P Narrative: Continue present therapy Monitor white blood count closely monitor p.o. intake Time Spent With Patient Time: Total time spent is greater than 50% in coordination of care (as documented) at patient's floor/unit and/or counseling patient:
--- NOTE | 2020-10-18 14:49 | Internal Med Progress Note ---
SUBJECTIVE Subjective Patient information: Note initiated : 10/18/20 at 2:43 pm Service Date, if different from initiated Date: [] Patient: Gladis Lim 85 y/o F admitted on 10/15/20 for abdominal pain. Chief Complaint: [] Principal diagnosis: Postoperative cholecystectomy Interval history: Ms. Lim is a 85 year old female with a history of A. fib, chronic kidney disease, hypothyroidism, possible history of stroke. The patient presented to the ED with a low chest pain/abdominal pain in the epigastric and upper abdomen described as are achy and sharp and seem to develop after eating. In the ED she was found have a leukocytosis and had a CT abdomen pelvis and a ultrasound which showed acute cholecystitis. Surgery was contacted and asked hospitalist to comanage given comorbidities. 10/16 General surgery planning for cholecystectomy tomorrow, holding eliquis. Discontinued Cefepime, started Ceftriaxone, continued Metronidazole. 10/17 Doing ok post op however confused, attempted to call Daughter but no answer. 10/18 Holding Toprol for bradycardia, replaced potassium. Confused today, uncertain what her baseline cognition is but has cognitive impairment per documents. Physical Exam Head: Atraumatic, normal inspection. Eyes: normal appearance, no scleral icterus. Neck: full ROM Respiratory: no respiratory distress. Cardiovascular: normal rate and rhythm, S1, S2. GI/Abdominal: abdominal binder, abdominal drain, diffuse abdominal tenderness Extremities: full range of motion, nontender. Neurological: CN II-XII intact, intact motor, intact sensation. Psychiatric: impaired cognition Skin: warm, normal color Constitutional Vitals: Vital Signs Temp Pulse Resp BP Pulse Ox 97.4 F 59 L 19 126/66 99 10/18/20 12:01 10/18/20 08:01 10/18/20 12:01 10/18/20 12:01 10/18/20 12:01 Period Temp Pulse Resp BP Sys/Crawford Pulse Ox Last 24 Hr 97.3 F-98.4 F 53-68 10- 90-126/41-95 84-100 Intake and Output 10/18/20 10/18/20 10/18/20 05:59 13:59 21:59 Intake Total 739 1215 Output Total 5 100 Balance 734 1115 Intake & Output: Intake & Output 10/18/20 10/18/20 10/18/20 05:59 13:59 21:59 Intake Total 739 1215 Output Total 5 100 Balance 734 1115 Intake: IV 139 1215 Sodium Chloride 0.9% 1,000 ml @ 1000 84 mls/hr IV .[id number] [facility] Rx#: [id number] Rocephin 2 gm In Dextrose 5% in 50 Water 50 ml @ 100 mls/hr IV DAILY [facility] Rx#:[id number] Oral 600 Output: Drainage 100 Abdomen 100 Drainage 2 Abdomen 2 # of times incontinent of urine 3 Other: # Bowel Movements 0 OBJ DATA Labs CBC & Chem 7: 10/18/20 12:20 10/18/20 05:03 Labs: Abnormal Lab Results 10/18/20 10/18/20 10/18/20 12:20 05:03 05:03 WBC 13.5 H RBC 2.95 L Hgb 8.7 L 8.5 L Hct 27.7 L MCHC 30.7 L RDW 17.6 H Plt Count 560 H MPV 10.8 H Neut % (Auto) 85.7 H Lymph % (Auto) 6.8 L Lymph # (Auto) 0.92 L [place] # (Auto) Absolute Neutrophils 11.59 H Sodium Potassium 3.2 L Carbon Dioxide Anion Gap 7.0 L BUN 27 H Creatinine 1.4 H Glucose Uric Acid Calcium 7.8 L Magnesium AST 32 H Alkaline Phosphatase 118 H Total Protein 5.4 L Albumin 2.9 L 10/17/20 10/17/20 10/16/20 06:47 06:41 17:59 WBC 22.4 H 21.8 H RBC 3.41 L 3.79 L Hgb 9.8 L 10.8 L Hct 32.7 L 35.1 L MCHC 30.0 L 30.8 L RDW 17.1 H 16.9 H Plt Count 689 H 625 H MPV 10.6 H Neut % (Auto) 90.3 H 95.2 H Lymph % (Auto) 3.1 L 2.5 L Lymph # (Auto) 0.70 L 0.55 L [place] # (Auto) 1.41 H Absolute Neutrophils 20.27 H 20.77 H Sodium Potassium Carbon Dioxide Anion Gap BUN 26 H Creatinine 1.3 H Glucose 125 H Uric Acid Calcium 8.2 L Magnesium AST 37 H Alkaline Phosphatase Total Protein Albumin 3.0 L 10/16/20 10/16/20 05:00 05:00 WBC RBC 3.68 L Hgb 10.3 L Hct 33.6 L MCHC 30.7 L RDW 16.9 H Plt Count 575 H MPV 10.6 H Neut % (Auto) Lymph % (Auto) 12.4 L Lymph # (Auto) 1.29 L [place] # (Auto) Absolute Neutrophils 8.09 H Sodium 147 H Potassium Carbon Dioxide 33 H Anion Gap 7.0 L BUN 32 H Creatinine 1.3 H Glucose Uric Acid 12.0 H Calcium 8.5 L Magnesium 2.6 H AST Alkaline Phosphatase Total Protein Albumin 3.0 L Meds: Medications Acetaminophen (Acetaminophen 325 Mg Tablet) 650 mg PO Q6HP PRN PRN Reason: PAIN/FEVER > 101 Albuterol/Ipratropium (Ipratropium/Albuterol 3 Ml Ampul.Neb) 3 ml NEB Q4HP PRN PRN Reason: Shortness Of Breath Docusate Sodium (Docusate Sodium 100 Mg Capsule) 100 mg PO BID [facility] Last Admin: 10/18/20 08:12 Dose: 100 mg Documented by: Gabapentin (Gabapentin 100 Mg Capsule) 100 mg PO TID [facility] Last Admin: 10/18/20 14:28 Dose: 100 mg Documented by: Sodium Chloride (Sodium Chloride 0.9%) 1,000 mls @ 84 mls/hr IV .[id number] [facility] Last Admin: 10/18/20 11:56 Dose: 84 mls/hr Documented by: Ceftriaxone Sodium 2 gm/ (Dextrose) 50 mls @ 100 mls/hr IV DAILY [facility]; Protocol Last Infusion: 10/18/20 09:48 Dose: Infused Documented by: Magnesium Sulfate (Magnesium Sulfate) 2 gm in 50 mls @ 50 mls/hr IV UD PRN PRN Reason: Magnesium </= 1.6 Metronidazole (Flagyl) 500 mg in 100 mls @ 100 mls/hr IV Q8H [facility]; Protocol Last Admin: 10/18/20 14:28 Dose: 100 mls/hr Documented by: Potassium Chloride 40 meq/ (Dextrose) 520 mls @ 130 mls/hr IV UD PRN PRN Reason: Potassium < 3 Acetaminophen (Ofirmev) 650 mg in 65 mls @ 130 mls/hr IV Q6HP PRN; Protocol PRN Reason: PAIN/FEVER > 101 Last Infusion: 10/18/20 08:41 Dose: Infused Documented by: Levothyroxine Sodium (Levothyroxine 75 Mcg Tablet) 75 mcg PO QAMAC [facility] Last Admin: 10/18/20 08:12 Dose: 75 mcg Documented by: Morphine Sulfate (Morphine 20 Mg/Ml Oral.Conc) 1 mg PO Q2HP PRN PRN Reason: Pain Morphine Sulfate (Morphine 2 Mg/Ml Vial) 2 mg IV Q1HP PRN; Protocol PRN Reason: Per Pain Protocol Last Admin: 10/18/20 09:27 Dose: 2 mg Documented by: Morphine Sulfate (Morphine 4 Mg/Ml Vial) 4 mg IV Q4HP PRN; Protocol PRN Reason: Per Pain Protocol Nitroglycerin (Nitroglycerin 0.4 Mg Tab.Subl) 0.4 mg SL Q5M PRN PRN Reason: Chest Pain Ondansetron HCl (Ondansetron 4 Mg/2 Ml Vial) 4 mg IV Q4HP PRN; Protocol PRN Reason: Nausea And Vomiting Last Admin: 10/16/20 15:54 Dose: 4 mg Documented by: Polyethylene Glycol (Polyethylene Glycol 3350 17 Gm Packet) 17 gm PO DAILYP PRN PRN Reason: Constipation Potassium Chloride (Potassium Chloride 20 Meq Tablet) 40 meq PO UD PRN PRN Reason: Potssium is 3-3.5 Senna (Sennosides 1 Tablet) 2 tab PO DAILYP PRN PRN Reason: Constipation Simethicone (Simethicone 80 Mg Tab.Chew) 80 mg PO Q6HP PRN PRN Reason: epigastric pain Sodium Chloride (0.9 % Sodium Chloride 10 Ml Syringe) 10 ml IV Q8 [facility] Last Admin: 10/18/20 06:15 Dose: Not Given Documented by: A/P Narrative A/P Narrative: Assessment: 85-year-old female with a history of hypertension, atrial fibrillation on chronic kidney disease 3B, hypothyroidism, possible history of strokes, cognitive impairment admitted for acute cholecystitis. The patient had a laparoscopic cholecystectomy on 10/16/20. #Acute cholecystitis s/p cholecystectomy 10/16/20 #Concern for metastatic malignancy #Recent UTI: #A. fib w/PPM: previously on Eliquis/BB #CKD IIIb: #HTN: #Hypothyroidism: #Chronic pain: #h/o CVA: #Thrombocytosis: 2/2 reactive + chronic #Memory deficits: P: -Ceftriaxone and Flagyl -IVF while npo -General surgery following. -Hold eliquis for surgery -cont BB -PT/OT -Review goals of care with family Monday at bedside. -ppx: SCD/restart Eliquis postop per surgeon Time Spent With Patient Time: Total time spent is greater than 50% in coordination of care (as documented) at patient's floor/unit and/or counseling patient:
[2020-10-18] MEDS ORDERED: METOPROLOL TARTRATE 25 MG TABLET PO SCH (15:30)
[2020-10-18] MEDS ORDERED: AMIODARONE 150 MG in DEXTROSE 5% IN WATER 50 ML IV ONE (18:14)
[2020-10-18] MEDS ORDERED: AMIODARONE 360 MG in PREMIX 1 BAG IV SCH (18:15)
[2020-10-18] MEDS ORDERED: PHENYLEPHRINE 20 MG in 0.9 % SODIUM CHLORIDE 248 ML IV SCH (18:15)
[2020-10-18] MEDS ORDERED: 0.9 % SODIUM CHLORIDE 250 ML IV SCH (18:15)
[2020-10-18] MEDS: ONDANSETRON 4 MG/2 ML VIAL IV PRN ×2 (18:20→22:05)
[2020-10-18] MEDS ORDERED: 0.9 % SODIUM CHLORIDE 500 ML IV ONE (18:44)
[2020-10-18 19:26] LABS: Basophils # (Auto) 0.09 K/mcL (0.00-0.20); Basophils % (Auto) 0.6 % (0.0-2.0); Eosinophils # (Auto) 0.22 K/mcL (0.00-0.70); Eosinophils % (Auto) 1.5 % (0.0-7.0); Hematocrit 30.1 % (36.0-48.0); Lymphocytes # (Auto) 1.03 K/mcL (1.50-4.80); Mean Cell Volume 95.9 fL (80.0-100.0); Mean Corpuscular HGB Conc 29.9 g/dL (31.0-36.0); Mean Platelet Volume 10.9 fL (7.4-10.4); Monocytes # (Auto) 1.18 K/mcL (0.10-0.90); Neutrophils % (Auto) 82.9 % (38.0-78.0); Platelet Count 606 K/mcL (140-440); RBC 3.14 M/mcL (4.00-5.20); WBC 14.7 K/mcL (4.5-11.0)
--- NOTE | 2020-10-18 19:56 | XRay Report ---
HISTORY: Hypoxia FINDINGS: There is moderate consolidation in the left lower lobe. This could be atelectasis or pneumonia. This has enlarged since the prior chest CT performed on 10/14/20. There is a mild alveolar infiltrate developing medially in the right lower lobe. The upper lung roth are clear. The heart size is within upper limits of normal. Dual-chamber pacemaker is well-positioned. There is no congestive heart failure. There are numerous surgical clips in the region of the right lobe of the thyroid. IMPRESSION: Increasing consolidation in the left lower lobe and mild alveolar infiltrate medially in the right lower lobe Interpreted and Authenticated by: Leon Montaño 10/18/20
[2020-10-18] MEDS ORDERED: 0.9 % SODIUM CHLORIDE 250 ML IV ONE (20:19)
[2020-10-18] MEDS ORDERED: HEPARIN 5,000 UNIT/ML VIAL SQ SCH (21:00)
[2020-10-18] MEDS: APIXABAN 5 MG TABLET PO SCH (21:04)
[2020-10-18] MEDS: morphine 4 MG/ML VIAL IV PRN (22:05)
--- NOTE | 2020-10-18 23:54 | Procedure Note ---
PROC Central Line Placement Right IJ: Consent obtained: verbal consent Date of Procedure: 10/18/20 Time out performed: Yes Patient placed on monitor/pulse ox: Yes MD prep: mask, sterile gown, sterile gloves and cap Central line prep: 2% Chlorhexidine scrub Local anesthesia used: lidocaine 1% Amount of anesthesia used (mls): 5 Ultrasound used for placement: Yes Central line lumen inserted: quad Post procedure: sutured in place Post procedure x-ray: tip of catheter in good position Patient tolerated procedure: well Complications: none
[2020-10-19] MEDS: morphine 4 MG/ML VIAL IV PRN ×2 (00:16→02:15)
[2020-10-19] MEDS: ONDANSETRON 4 MG/2 ML VIAL IV PRN ×2 (02:15→19:35)
[2020-10-19] MEDS: ACETAMINOPHEN 650 MG/65 ML BAG IV PRN (04:59)
[2020-10-19] MEDS: 0.9 % SODIUM CHLORIDE 10 ML SYRINGE IV SCH ×5 (05:35→21:34)
[2020-10-19] MEDS: metroNIDAZOLE 500 MG/100 ML BAG IV SCH ×3 (05:35→21:34)
[2020-10-19 05:53] LABS: Basophils # (Auto) 0.09 K/mcL (0.00-0.20); Basophils % (Auto) 0.7 % (0.0-2.0); Eosinophils # (Auto) 0.21 K/mcL (0.00-0.70); Eosinophils % (Auto) 1.5 % (0.0-7.0); Hematocrit 28.6 % (36.0-48.0); Hemoglobin 8.6 g/dL (12.0-15.0); Lymphocytes # (Auto) 1.09 K/mcL (1.50-4.80); Lymphocytes % (Auto) 7.9 % (15.0-49.0); Mean Cell Volume 95.3 fL (80.0-100.0); Mean Corpuscular HGB Conc 30.1 g/dL (31.0-36.0); Mean Platelet Volume 10.6 fL (7.4-10.4); Monocytes # (Auto) 0.97 K/mcL (0.10-0.90); Monocytes % (Auto) 7.1 % (1.0-12.0); Neutrophils % (Auto) 82.8 % (38.0-78.0); Platelet Count 602 K/mcL (140-440); WBC 13.7 K/mcL (4.5-11.0)
[2020-10-19 06:31] LABS: ALT/SGPT 17 U/L (<40); AST/SGOT 38 U/L (<32); Albumin 2.9 gm/dL (3.2-5.2); Albumin/Globulin Ratio 1.1 (1.0-2.3); Alkaline Phosphatase 148 U/L (39-117); Bilirubin,Total < 0.2 mg/dL (0.1-1.0); Blood Urea Nitrogen 23 mg/dL (8-23); Calcium 7.8 mg/dL (8.6-10.4); Carbon Dioxide 25 mmol/L (22-30); Chloride 113 mmol/L (96-108); Globulin 2.7 gm/dL (2.2-3.7); Glomerular Filtration Rate 34; Glucose 117 mg/dL (70-105)
[2020-10-19] MEDS: LEVOTHYROXINE 75 MCG TABLET PO SCH (07:33)
--- NOTE | 2020-10-19 08:23 | XRay Report ---
CLINICAL INFORMATION: Central Line Placement COMPARISON: 10/18/2020 FINDINGS: Right IJ central line tip overlies the SVC right atrial junction in satisfactory position. There is no pneumothorax or other complication from line placement. Moderate cardiomegaly is stable. Pacemaker leads in stable satisfactory position. Mediastinum and pulmonary vessels are otherwise normal. Small left pleural effusion with dense consolidated atelectasis in the left lower lobe and lingula are unchanged. Subsegmental atelectasis has developed in the right base. IMPRESSION: 1. Right IJ central line in satisfactory position. No complication from line placement. 2. Densely consolidated atelectasis left lower lobe and lingula with small left pleural effusion - no change 3. Subsegmental atelectasis right base - new Interpreted and Authenticated by: Ryan Hooper 10/19/20
[2020-10-19] MEDS ORDERED: HYDROcodone/APAP 5/325MG TABLET PO PRN (09:14)
[2020-10-19] MEDS: GABAPENTIN 100 MG CAPSULE PO SCH ×3 (09:25→21:33)
[2020-10-19] MEDS: cefTRIAXone 2 GM in DEXTROSE 5% IN WATER 50 ML IV SCH (09:26)
[2020-10-19] MEDS: DOCUSATE SODIUM 100 MG CAPSULE PO SCH ×2 (09:26→21:33)
[2020-10-19] MEDS: APIXABAN 5 MG TABLET PO SCH ×3 (11:16→21:33)
--- NOTE | 2020-10-19 13:28 | EKG ---
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 /store/[email or web address]/[id number]
--- NOTE | 2020-10-19 15:30 | Surgical Pathology Report ---
Histology Microscopic Diagnosis Specimen A- GALLBLADDER, CHOLECYSTECTOMY: --- ACUTE AND CHRONIC CHOLECYSTITIS WITH CHOLESTEROLOSIS AND CHOLELITHIASIS. (RLF:bmw) Procedural Impression Acute cholecystitis, cholelithiasis. Gross Description Received in formalin designated gallbladder, is a disrupted vidales-lewis gallbladder measuring 8.5 x 4.4 x 3.2 cm. There is a 2 cm disrupted area on the hepatic bed. The duct is not definitely identified. There is a 1.5 cm stapled margin; this is inked black. Within the gallbladder are multiple lewis-black stones from less than 0.1 to 1.1 cm in greatest dimension. The mucosa is vidales-lewis and covered with lacy yellow pigmentation and viscous green sludge and the wall is up to 0.7 cm thick. Material Dispatcher sections submitted in two cassettes. (SCB:adj) Electronically Signed Anna Gaspar MD, FCAP Electronically Signed 10/19/2020 15:29
--- NOTE | 2020-10-19 16:45 | General Surgery Progress Note ---
SUBJECTIVE Subjective Patient information: Note initiated : 10/19/20 at 4:44 pm Service Date, if different from initiated Date: [] Patient: Gladis Lim 85 y/o F admitted on 10/15/20 for abdominal pain. Chief Complaint: [] Principal diagnosis: Postoperative cholecystectomy Interval history: Patient appears to have deteriorated over the past few hours. She has been afebrile. She has been oxygenating fairly well. Her white blood count has not decreased but is stable compared to yesterday. LFTs are normal. BUN is 23. Her oxygenation is 92 to 94%. Chest x-ray shows bibasilar infiltrates probably as a result of hypoventilation. She has been restarted on Eliquis. Constitutional Vitals: Vital Signs Temp Pulse Resp BP Pulse Ox 98.2 F 61 10 L 96/47 92 10/19/20 12:01 10/19/20 12:33 10/19/20 12:33 10/19/20 12:03 10/19/20 12:33 Period Temp Pulse Resp BP Sys/Crawford Pulse Ox Last 24 Hr 97.5 F-98.7 F 58-147 10-24 58-140/36-99 88-100 Intake and Output 10/19/20 10/19/20 10/19/20 05:59 13:59 21:59 Intake Total 1155 150 Output Total 101 32 1 Balance 1054 118 -1 Intake & Output: Intake & Output 10/19/20 10/19/20 10/19/20 05:59 13:59 21:59 Intake Total 1155 150 Output Total 101 32 1 Balance 1054 118 -1 Intake: IV 915 150 Sodium Chloride 0.9% 250 ml @ 250 Wide Open IV BOLUS ONE Rx#: [id number] Sodium Chloride 0.9% 500 ml @ 500 Wide Open IV BOLUS ONE Rx#: [id number] Rocephin 2 gm In Dextrose 5% in 50 Water 50 ml @ 100 mls/hr IV DAILY YESSICA Rx#:[id number] Oral 240 Output: Drainage 100 30 Abdomen 100 30 # of times incontinent of urine 1 2 1 Other: Meal Lunch Percent of Meal Consumed 25% # Voids 1 Eye Eye exam: Present EOMI and normal appearance Pupils: Present PERRL Additional comments: Decreased vision in the left eye ENT ENT exam: Present mucous membranes moist, normal exam and normal oropharynx Neck Neck exam: Present full ROM and normal inspection; Absent lymphadenopathy, tenderness and thyromegaly Respiratory Respiratory exam: Present decreased breath sounds and rhonchi; Absent respiratory distress and wheezes Cardiovascular Cardiovascular exam: Present normal rate and rhythm, gallop, JVD, RRR, +S1 and +S2 GI/Abdominal GI/Abdominal exam: Present normal bowel sounds; Absent soft, distended and guarding Extremities Exam Extremities exam: Present calf tenderness, full ROM, normal capillary refill, normal inspection, pedal edema and Foot pink and warm A/P Assessment and plan (1) Cholecystitis, acute with cholelithiasis: Status: Acute Qualifiers: Biliary obstruction: without biliary obstruction Qualified Code(s): K80.00 - Calculus of gallbladder with acute cholecystitis without obstruction (2) Cerebral infarction, chronic: Status: Acute (3) Pulmonary infiltrates: Status: Acute Narrative A/P Narrative: Patient will be continued on present therapy and antibiotics Time Spent With Patient Time: Total time spent is greater than 50% in coordination of care (as documented) at patient's floor/unit and/or counseling patient:
[2020-10-19] MEDS: ACETAMINOPHEN 500 MG TABLET PO PRN (19:08)
--- NOTE | 2020-10-19 20:23 | Internal Med Progress Note ---
SUBJECTIVE Subjective Patient information: Note initiated : 10/19/20 at 8:18 pm Service Date, if different from initiated Date: [] Patient: Gladis Lim 85 y/o F admitted on 10/15/20 for abdominal pain. Chief Complaint: [] Principal diagnosis: Postoperative cholecystectomy Interval history: Ms. Lim is a 85 year old female with a history of A. fib, chronic kidney disease, hypothyroidism, possible history of stroke. The patient presented to the ED with a low chest pain/abdominal pain in the epigastric and upper abdomen described as are achy and sharp and seem to develop after eating. In the ED she was found have a leukocytosis and had a CT abdomen pelvis and a ultrasound which showed acute cholecystitis. Surgery was contacted and asked hospitalist to comanage given comorbidities. 10/16 General surgery planning for cholecystectomy tomorrow, holding eliquis. Discontinued Cefepime, started Ceftriaxone, continued Metronidazole. 10/17 Doing ok post op however confused, attempted to call Daughter but no answer. 10/18 Holding Toprol for hypotension, replaced potassium. More confused and hallucinating, uncertain what her baseline cognition is but has cognitive impairment per documents. Developed atrial fibrillation with RVR, started Lopressor and IV fluid bolus, transferred to PCU. Central line placed for d ifficult access. Converted back to normal sinus rythm. 10/19 Improved vitals but still confused and hallucinating-probably delirium. Goals of care discussed with family, will wait for encephalopathy to improve then discuss goals of care with the patient. Physical Exam Head: Atraumatic, normal inspection. Eyes: normal appearance, no scleral icterus. Neck: full ROM, central line right IJ Respiratory: no respiratory distress. Cardiovascular: normal rate and rhythm, S1, S2. GI/Abdominal: abdominal binder, abdominal drain, diffuse abdominal tenderness Extremities: full range of motion, nontender. Neurological: II-XII intact, intact motor, intact sensation. Psychiatric: impaired cognition Skin: warm, normal color Constitutional Vitals: Vital Signs Temp Pulse Resp BP Pulse Ox 97.5 F 75 14 138/71 99 10/19/20 16:46 10/19/20 18:01 10/19/20 18:01 10/19/20 18:01 10/19/20 18:01 Period Temp Pulse Resp BP Sys/Crawford Pulse Ox Last 24 Hr 97.5 F-98.7 F 60-75 10-15 96-140/44-99 90-100 Intake and Output 10/19/20 10/19/20 10/19/20 05:59 13:59 21:59 Intake Total 1155 150 100 Output Total 101 32 2 Balance 1054 118 98 Weight 90.31 kg Patient Weight 10/20/20 05:59 Weight 90.31 kg Intake & Output: Intake & Output 10/19/20 10/19/20 10/19/20 05:59 13:59 21:59 Intake Total 1155 150 100 Output Total 101 32 2 Balance 1054 118 98 Weight 90.31 kg Intake: IV 915 150 100 Sodium Chloride 0.9% 250 ml @ 250 Wide Open IV BOLUS ONE Rx#: [id number] Sodium Chloride 0.9% 500 ml @ 500 Wide Open IV BOLUS ONE Rx#: [id number] Rocephin 2 gm In Dextrose 5% in 50 Water 50 ml @ 100 mls/hr IV DAILY YESSICA Rx#:[id number] Oral 240 0 Output: Drainage 100 30 Abdomen 100 30 # of times incontinent of urine 1 2 2 Other: Meal Lunch Percent of Meal Consumed 25% # Voids 1 OBJ DATA Labs CBC & Chem 7: 10/19/20 04:57 10/19/20 04:58 Labs: Abnormal Lab Results 10/19/20 10/19/20 10/18/20 04:58 04:57 18:55 WBC 13.7 H RBC 3.00 L Hgb 8.6 L Hct 28.6 L MCHC 30.1 L RDW 18.0 H Plt Count 602 H MPV 10.6 H Neut % (Auto) 82.8 H Lymph % (Auto) 7.9 L Lymph # (Auto) 1.09 L [place] # (Auto) 0.97 H Absolute Neutrophils 11.38 H D-Dimer 3.69 H Sodium 146 H Potassium Chloride 113 H Anion Gap BUN Creatinine 1.4 H Glucose 117 H Calcium 7.8 L AST 38 H Alkaline Phosphatase 148 H Total Protein 5.6 L Albumin 2.9 L 10/18/20 10/18/20 10/18/20 18:55 12:20 05:03 WBC 14.7 H 13.5 H RBC 3.14 L 2.95 L Hgb 9.0 L 8.7 L 8.5 L Hct 30.1 L 27.7 L MCHC 29.9 L 30.7 L RDW 18.0 H 17.6 H Plt Count 606 H 560 H MPV 10.9 H 10.8 H Neut % (Auto) 82.9 H 85.7 H Lymph % (Auto) 7.0 L 6.8 L Lymph # (Auto) 1.03 L 0.92 L [place] # (Auto) 1.18 H Absolute Neutrophils 12.19 H 11.59 H D-Dimer Sodium Potassium Chloride Anion Gap BUN Creatinine Glucose Calcium AST Alkaline Phosphatase Total Protein Albumin 10/18/20 10/17/20 10/17/20 05:03 06:47 06:41 WBC 22.4 H RBC 3.41 L Hgb 9.8 L Hct 32.7 L MCHC 30.0 L RDW 17.1 H Plt Count 689 H MPV 10.6 H Neut % (Auto) 90.3 H Lymph % (Auto) 3.1 L Lymph # (Auto) 0.70 L [place] # (Auto) 1.41 H Absolute Neutrophils 20.27 H D-Dimer Sodium Potassium 3.2 L Chloride Anion Gap 7.0 L BUN 27 H 26 H Creatinine 1.4 H 1.3 H Glucose 125 H Calcium 7.8 L 8.2 L AST 32 H 37 H Alkaline Phosphatase 118 H Total Protein 5.4 L Albumin 2.9 L 3.0 L Meds: Medications Acetaminophen (Acetaminophen 500 Mg Tablet) 500 mg PO Q4-6HP PRN; Protocol PRN Reason: Per Pain Protocol Last Admin: 10/19/20 19:08 Dose: 500 mg Documented by: Albuterol/Ipratropium (Ipratropium/Albuterol 3 Ml Ampul.Neb) 3 ml NEB Q4HP PRN PRN Reason: Shortness Of Breath Apixaban (Apixaban 5 Mg Tablet) 2.5 mg PO BID [facility] Last Admin: 10/19/20 11:16 Dose: 2.5 mg Documented by: Docusate Sodium (Docusate Sodium 100 Mg Capsule) 100 mg PO BID [facility] Last Admin: 10/19/20 09:26 Dose: 100 mg Documented by: Gabapentin (Gabapentin 100 Mg Capsule) 100 mg PO TID [facility] Last Admin: 10/19/20 17:26 Dose: 100 mg Documented by: Ceftriaxone Sodium 2 gm/ (Dextrose) 50 mls @ 100 mls/hr IV DAILY [facility]; Protocol Last Infusion: 10/19/20 10:08 Dose: Infused Documented by: Magnesium Sulfate (Magnesium Sulfate) 2 gm in 50 mls @ 50 mls/hr IV UD PRN PRN Reason: Magnesium </= 1.6 Metronidazole (Flagyl) 500 mg in 100 mls @ 100 mls/hr IV Q8H YESSICA; Protocol Last Infusion: 10/19/20 16:49 Dose: Infused Documented by: Potassium Chloride 40 meq/ (Dextrose) 520 mls @ 130 mls/hr IV UD PRN PRN Reason: Potassium < 3 Levothyroxine Sodium (Levothyroxine 75 Mcg Tablet) 75 mcg PO QAMAC YESSICA Last Admin: 10/19/20 07:33 Dose: 75 mcg Documented by: Nitroglycerin (Nitroglycerin 0.4 Mg Tab.Subl) 0.4 mg SL Q5M PRN PRN Reason: Chest Pain Ondansetron HCl (Ondansetron 4 Mg/2 Ml Vial) 4 mg IV Q4HP PRN; Protocol PRN Reason: Nausea And Vomiting Last Admin: 10/19/20 19:35 Dose: 4 mg Documented by: Polyethylene Glycol (Polyethylene Glycol 3350 17 Gm Packet) 17 gm PO DAILYP PRN PRN Reason: Constipation Potassium Chloride (Potassium Chloride 20 Meq Tablet) 40 meq PO UD PRN PRN Reason: Potssium is 3-3.5 Senna (Sennosides 1 Tablet) 2 tab PO DAILYP PRN PRN Reason: Constipation Simethicone (Simethicone 80 Mg Tab.Chew) 80 mg PO Q6HP PRN PRN Reason: epigastric pain Sodium Chloride (0.9 % Sodium Chloride 10 Ml Syringe) 10 ml IV Q8 YESSICA Last Admin: 10/19/20 14:22 Dose: 10 ml Documented by: Sodium Chloride (0.9 % Sodium Chloride 10 Ml Syringe) 10 ml IV Q12 YESSICA Last Admin: 10/19/20 07:38 Dose: 10 ml Documented by: A/P Narrative A/P Narrative: Assessment: 85-year-old female with a history of hypertension, atrial fibrillation on chronic kidney disease 3B, hypothyroidism, possible history of strokes, cognitive impairment admitted for acute cholecystitis. The patient had a laparoscopic cholecystectomy on 10/16/20. #Acute cholecystitis s/p cholecystectomy 6/18/21 #Encephalopathy w/ hallucinations, likely delirium #Multiple masses on CT scans of uncertain etiology, concern for metastatic malignancy #Recent UTI, treated #A. 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 #Cognitive impairment P: -Ceftriaxone and Flagyl -Home Eliquis. -Holding beta chandler for rate control, could probably resume soon. -Wean off opioids. -Continue home Gabapentin, Levothyroxine. -Delirium mitigation strategies. -PT/OT -Remove central line when able. -Monitor abdominal drain output. -General surgery following. -DVT ppx: Eliquis. -Code status: Full -Disposition: SNF Time Spent With Patient Time: Total time spent is greater than 50% in coordination of care (as documente d) at patient's floor/unit and/or counseling patient:
[2020-10-20] MEDS: metroNIDAZOLE 500 MG/100 ML BAG IV SCH ×3 (05:56→21:30)
[2020-10-20] MEDS: 0.9 % SODIUM CHLORIDE 10 ML SYRINGE IV SCH ×6 (05:57→21:31)
[2020-10-20] MEDS: ACETAMINOPHEN 500 MG TABLET PO PRN (06:06)
[2020-10-20 06:11] LABS: Basophils # (Auto) 0.08 K/mcL (0.00-0.20); Basophils % (Auto) 0.9 % (0.0-2.0); Eosinophils # (Auto) 0.33 K/mcL (0.00-0.70); Eosinophils % (Auto) 3.5 % (0.0-7.0); Hematocrit 26.8 % (36.0-48.0); Lymphocytes # (Auto) 1.18 K/mcL (1.50-4.80); Lymphocytes % (Auto) 12.6 % (15.0-49.0); Mean Cell Volume 95.7 fL (80.0-100.0); Mean Corpuscular HGB Conc 29.9 g/dL (31.0-36.0); Monocytes % (Auto) 6.4 % (1.0-12.0); Neutrophils % (Auto) 76.6 % (38.0-78.0); Platelet Count 495 K/mcL (140-440); Red Cell Distribution Width 18.2 % (11.5-14.5); WBC 9.4 K/mcL (4.5-11.0)
[2020-10-20 06:23] LABS: ALT/SGPT 17 U/L (<40); AST/SGOT 28 U/L (<32); Albumin 2.7 gm/dL (3.2-5.2); Albumin/Globulin Ratio 1.1 (1.0-2.3); Alkaline Phosphatase 180 U/L (39-117); Bilirubin,Total 0.2 mg/dL (0.1-1.0); Blood Urea Nitrogen 21 mg/dL (8-23); Calcium 7.8 mg/dL (8.6-10.4); Carbon Dioxide 27 mmol/L (22-30); Chloride 111 mmol/L (96-108); Globulin 2.5 gm/dL (2.2-3.7); Glomerular Filtration Rate 37; Glucose 87 mg/dL (70-105)
[2020-10-20] MEDS: LEVOTHYROXINE 75 MCG TABLET PO SCH (07:14)
[2020-10-20] MEDS: GABAPENTIN 100 MG CAPSULE PO SCH ×3 (08:40→21:29)
[2020-10-20] MEDS: DOCUSATE SODIUM 100 MG CAPSULE PO SCH (08:40)
[2020-10-20] MEDS: cefTRIAXone 2 GM in DEXTROSE 5% IN WATER 50 ML IV SCH (08:40)
[2020-10-20] MEDS: APIXABAN 5 MG TABLET PO SCH ×2 (08:40→21:30)
[2020-10-20] MEDS ORDERED: IPRATROPIUM/ALBUTEROL 3 ML AMPUL.NEB NEB PRN (11:34)
[2020-10-20] MEDS ORDERED: SIMETHICONE 80 MG TAB.CHEW PO PRN (11:34)
[2020-10-20] MEDS ORDERED: LIDOCAINE HCL/PF 100 MG/5 ML SYRINGE IV ONE (11:34)
[2020-10-20] MEDS ORDERED: ONDANSETRON 4 MG/2 ML VIAL IV PRN (11:34)
[2020-10-20] MEDS ORDERED: POLYETHYLENE GLYCOL 3350 17 GM PACKET PO PRN (11:34)
[2020-10-20] MEDS ORDERED: NITROGLYCERIN 0.4 MG TAB.SUBL SL PRN (11:34)
[2020-10-20] MEDS ORDERED: ONDANSETRON 4 MG/2 ML VIAL ONE (11:34)
--- NOTE | 2020-10-20 11:35 | Internal Med Progress Note ---
SUBJECTIVE Subjective Patient information: Note initiated : 10/20/20 at 11:33 am Service Date, if different from initiated Date: [] Patient: Gladis Lim 85 y/o F admitted on 10/15/20 for abdominal pain. Chief Complaint: [] Principal diagnosis: Postoperative cholecystectomy Interval history: Ms. Lim is a 85 year old female with a history of A. fib, chronic kidney disease, hypothyroidism, possible history of stroke. The patient presented to the ED with a low chest pain/abdominal pain in the epigastric and upper abdomen described as are achy and sharp and seem to develop after eating. In the ED she was found have a leukocytosis and had a CT abdomen pelvis and a ultrasound which showed acute cholecystitis. Surgery was contacted and asked hospitalist to comanage given comorbidities. 10/16 General surgery planning for cholecystectomy tomorrow, holding eliquis. Discontinued Cefepime, started Ceftriaxone, continued Metronidazole. 10/17 Doing ok post op however confused, attempted to call Daughter but no answer. 10/18 Holding Toprol for hypotension, replaced potassium. More confused and hallucinating, uncertain what her baseline cognition is but has cognitive impairment per documents. Developed atrial fibrillation with RVR, started Lopressor and IV fluid bolus, transferred to PCU. Central line placed for difficult access. Converted back to normal sinus rythm. 10/19 Improved vitals but still confused and hallucinating-probably delirium. Goals of care discussed with family, will wait for encephalopathy to improve then discuss goals of care with the patient. 10/20 Resting comfortably this morning, still hallucinating when awake per staff. Start Lopressor 25 mg BID. Transfer to med/surg. Physical Exam Head: Atraumatic, normal inspection. Eyes: normal appearance, no scleral icterus. Neck: full ROM, central line right IJ Respiratory: no respiratory distress. Cardiovascular: normal rate and rhythm, S1, S2. GI/Abdominal: abdominal binder, abdominal drain, diffuse abdominal tenderness Extremities: full range of motion, nontender. Neurological: II-XII intact, intact motor, intact sensation. Psychiatric: impaired cognition Skin: warm, normal color Constitutional Vitals: Vital Signs Temp Pulse Resp BP Pulse Ox 97.5 F 62 14 107/54 92 10/20/20 11:18 10/20/20 11:18 10/20/20 11:18 10/20/20 11:18 10/20/20 11:18 Period Temp Pulse Resp BP Sys/Crawford Pulse Ox Last 24 Hr 97.5 F-98.2 F 57-75 10-23 96-138/43-71 90-99 Intake and Output 10/19/20 10/20/20 10/20/20 21:59 05:59 13:59 Intake Total 100 400 390 Output Total 2 62 Balance 98 338 390 Weight 90.31 kg Intake & Output: Intake & Output 10/19/20 10/20/20 10/20/20 21:59 05:59 13:59 Intake Total 100 400 390 Output Total 2 62 Balance 98 338 390 Weight 90.31 kg Intake: IV 100 100 150 Rocephin 2 gm In Dextrose 5% in 50 Water 50 ml @ 100 mls/hr IV DAILY YESSICA Rx#:[id number] Oral 0 300 240 Output: Drainage 60 Abdomen 60 # of times incontinent of urine 2 2 Other: Meal Breakfast Percent of Meal Consumed 25% Feeding Ability Needs Supervision # Voids 1 OBJ DATA Labs CBC & Chem 7: 10/20/20 05:01 10/20/20 05:01 Labs: Abnormal Lab Results 10/20/20 10/20/20 10/19/20 05:01 05:01 04:58 WBC RBC 2.80 L Hgb 8.0 L Hct 26.8 L MCHC 29.9 L RDW 18.2 H Plt Count 495 H MPV 11.0 H Neut % (Auto) Lymph % (Auto) 12.6 L Lymph # (Auto) 1.18 L [place] # (Auto) Absolute Neutrophils D-Dimer Sodium 146 H Potassium Chloride 111 H 113 H Anion Gap 5.0 L BUN Creatinine 1.3 H 1.4 H Glucose 117 H Calcium 7.8 L 7.8 L AST 38 H Alkaline Phosphatase 180 H 148 H Total Protein 5.2 L 5.6 L Albumin 2.7 L 2.9 L 10/19/20 10/18/20 10/18/20 04:57 18:55 18:55 WBC 13.7 H 14.7 H RBC 3.00 L 3.14 L Hgb 8.6 L 9.0 L Hct 28.6 L 30.1 L MCHC 30.1 L 29.9 L RDW 18.0 H 18.0 H Plt Count 602 H 606 H MPV 10.6 H 10.9 H Neut % (Auto) 82.8 H 82.9 H Lymph % (Auto) 7.9 L 7.0 L Lymph # (Auto) 1.09 L 1.03 L [place] # (Auto) 0.97 H 1.18 H Absolute Neutrophils 11.38 H 12.19 H D-Dimer 3.69 H Sodium Potassium Chloride Anion Gap BUN Creatinine Glucose Calcium AST Alkaline Phosphatase Total Protein Albumin 10/18/20 10/18/20 10/18/20 12:20 05:03 05:03 WBC 13.5 H RBC 2.95 L Hgb 8.7 L 8.5 L Hct 27.7 L MCHC 30.7 L RDW 17.6 H Plt Count 560 H MPV 10.8 H Neut % (Auto) 85.7 H Lymph % (Auto) 6.8 L Lymph # (Auto) 0.92 L [place] # (Auto) Absolute Neutrophils 11.59 H D-Dimer Sodium Potassium 3.2 L Chloride Anion Gap 7.0 L BUN 27 H Creatinine 1.4 H Glucose Calcium 7.8 L AST 32 H Alkaline Phosphatase 118 H Total Protein 5.4 L Albumin 2.9 L Meds: Medications Acetaminophen (Acetaminophen 500 Mg Tablet) 500 mg PO Q4-6HP PRN; Protocol PRN Reason: Per Pain Protocol Last Admin: 10/20/20 06:06 Dose: 500 mg Documented by: Albuterol/Ipratropium (Ipratropium/Albuterol 3 Ml Ampul.Neb) 3 ml NEB Q4HP PRN PRN Reason: Shortness Of Breath Apixaban (Apixaban 5 Mg Tablet) 2.5 mg PO BID [facility] Last Admin: 10/20/20 08:40 Dose: 2.5 mg Documented by: Docusate Sodium (Docusate Sodium 100 Mg Capsule) 100 mg PO BID [facility] Last Admin: 10/20/20 08:40 Dose: 100 mg Documented by: Gabapentin (Gabapentin 100 Mg Capsule) 100 mg PO TID [facility] Last Admin: 10/20/20 08:40 Dose: 100 mg Documented by: Ceftriaxone Sodium 2 gm/ (Dextrose) 50 mls @ 100 mls/hr IV DAILY [facility]; Protocol Last Infusion: 10/20/20 09:19 Dose: Infused Documented by: Magnesium Sulfate (Magnesium Sulfate) 2 gm in 50 mls @ 50 mls/hr IV UD PRN PRN Reason: Magnesium </= 1.6 Metronidazole (Flagyl) 500 mg in 100 mls @ 100 mls/hr IV Q8H [facility]; Protocol Last Infusion: 10/20/20 07:23 Dose: Infused Documented by: Potassium Chloride 40 meq/ (Dextrose) 520 mls @ 130 mls/hr IV UD PRN PRN Reason: Potassium < 3 Levothyroxine Sodium (Levothyroxine 75 Mcg Tablet) 75 mcg PO QAMAC [facility] Last Admin: 10/20/20 07:14 Dose: 75 mcg Documented by: Metoprolol Tartrate (Metoprolol Tartrate 25 Mg Tablet) 25 mg PO BID YESSICA Nitroglycerin (Nitroglycerin 0.4 Mg Tab.Subl) 0.4 mg SL Q5M PRN PRN Reason: Chest Pain Ondansetron HCl (Ondansetron 4 Mg/2 Ml Vial) 4 mg IV Q4HP PRN; Protocol PRN Reason: Nausea And Vomiting Last Admin: 10/19/20 19:35 Dose: 4 mg Documented by: Polyethylene Glycol (Polyethylene Glycol 3350 17 Gm Packet) 17 gm PO DAILYP PRN PRN Reason: Constipation Last Admin: 10/20/20 08:41 Dose: 17 gm Documented by: Potassium Chloride (Potassium Chloride 20 Meq Tablet) 40 meq PO UD PRN PRN Reason: Potssium is 3-3.5 Senna (Sennosides 1 Tablet) 2 tab PO DAILYP PRN PRN Reason: Constipation Simethicone (Simethicone 80 Mg Tab.Chew) 80 mg PO Q6HP PRN PRN Reason: epigastric pain Sodium Chloride (0.9 % Sodium Chloride 10 Ml Syringe) 10 ml IV Q8 [facility] Last Admin: 10/20/20 05:57 Dose: 10 ml Documented by: Sodium Chloride (0.9 % Sodium Chloride 10 Ml Syringe) 10 ml IV Q12 [facility] Last Admin: 10/20/20 08:40 Dose: 10 ml Documented by: A/P Narrative A/P Narrative: Assessment: 85-year-old female with a history of hypertension, atrial fibrillation on chronic kidney disease 3B, hypothyroidism, possible history of strokes, cognitive impairment admitted for acute cholecystitis. The patient had a laparoscopic cholecystectomy on 10/16/20. #Acute cholecystitis s/p cholecystectomy 10/16/20 #Encephalopathy w/ hallucinations, likely delirium #Multiple masses on CT scans of uncertain etiology, concern for metastatic malignancy #Recent UTI, treated #A. 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 #Cognitive impairment P: -Transfer to medical/surgery floor. -Ceftriaxone and Flagyl -Home Eliquis. -Start Lopressor 25 mg BID. -Tylenol prn. -Continue home Gabapentin, Levothyroxine. -Delirium mitigation strategies. -PT/OT -Remove central line when able. -Monitor abdominal drain output. -General surgery following. -DVT ppx: Eliquis. -Code status: Full -Disposition: SNF Time Spent With Patient Time: Total time spent is greater than 50% in coordination of care (as nai fowler) at patient's floor/unit and/or counseling patient:
--- NOTE | 2020-10-20 12:58 | General Surgery Progress Note ---
SUBJECTIVE Subjective Patient information: Note initiated : 10/20/20 at 12:52 pm Service Date, if different from initiated Date: [] Patient: Gladis Lim 85 y/o F admitted on 10/15/20 for abdominal pain. Chief Complaint: [] Principal diagnosis: Postoperative cholecystectomy Interval history: Patient is slightly improved mentally. Discussed her baseline situation with her daughter Chiqui who states that she had a low level of memory deficit but she has deteriorated since hospital admission. The patient actually is more cooperative today and she responds more appropriately. Her mental changes are probably related to medications. White blood count 9.4, hemoglobin 8, hematocrit 26.8, BUN 21, creatinine 1.3, liver panel normal. BERNICE drain still with small amount of bloody drainage. Constitutional Vitals: Vital Signs Temp Pulse Resp BP Pulse Ox 97.8 F 71 14 139/70 92 10/20/20 12:00 10/20/20 12:00 10/20/20 11:18 10/20/20 12:00 10/20/20 11:18 Period Temp Pulse Resp BP Sys/Crawford Pulse Ox Last 24 Hr 97.5 F-97.9 F 57-75 11-23 99-139/43-71 90-99 Intake and Output 10/19/20 10/20/20 10/20/20 21:59 05:59 13:59 Intake Total 100 400 390 Output Total 2 62 Balance 98 338 390 Weight 199 lb 1.6 oz Intake & Output: Intake & Output 10/19/20 10/20/20 10/20/20 21:59 05:59 13:59 Intake Total 100 400 390 Output Total 2 62 Balance 98 338 390 Weight 199 lb 1.6 oz Intake: IV 100 100 150 Rocephin 2 gm In Dextrose 5% in 50 Water 50 ml @ 100 mls/hr IV DAILY YESSICA Rx#:[id number] Oral 0 300 240 Output: Drainage 60 Abdomen 60 # of times incontinent of urine 2 2 Other: Meal Breakfast Percent of Meal Consumed 25% Feeding Ability Needs Supervision # Voids 1 Head Head exam: Present atraumatic, normal inspection and normocephalic Eye Eye exam: Present EOMI and normal appearance Pupils: Present PERRL Additional comments: Decreased vision in the left eye ENT ENT exam: Present mucous membranes moist, normal exam and normal oropharynx Neck Neck exam: Present full ROM and normal inspection; Absent lymphadenopathy, tenderness and thyromegaly Respiratory Respiratory exam: Present decreased breath sounds and rhonchi; Absent respiratory distress and wheezes Cardiovascular Cardiovascular exam: Present normal rate and rhythm, gallop, JVD, RRR, +S1 and +S2 GI/Abdominal GI/Abdominal exam: Present normal bowel sounds; Absent soft, distended and guarding Extremities Exam Extremities exam: Present calf tenderness, full ROM, normal capillary refill, normal inspection, pedal edema and Foot pink and warm Neurological Exam Neurological exam: Present altered (Mental status is altered) and reflexes normal Psychiatric Psychiatric exam: Present anxious, depressed and manic Skin Skin exam: Present intact, normal color, petechiae, rash, urticaria and vesicles A/P Assessment and plan (1) Cholecystitis, acute with cholelithiasis: Status: Acute Qualifiers: Biliary obstruction: without biliary obstruction Qualified Code(s): K80.00 - Calculus of gallbladder with acute cholecystitis without obstruction (2) Cerebral infarction, chronic: Status: Acute (3) Pulmonary infiltrates: Status: Acute (4) Acute on chronic alteration in mental status: Status: Acute Narrative A/P Narrative: Overall clinical status is improved. Mentally she is more alert than on yesterday. Her pain is better controlled. There is slight increase in bloody drainage through her BERNICE so this will have to be monitored to make sure that it does not increase further. Her hemoglobin has drifted down some from yesterday. Overall status is improved. Time Spent With Patient Time: Total time spent is greater than 50% in coordination of care (as docgilmer petersoned) at patient's floor/unit and/or counseling patient:
[2020-10-20] MEDS ORDERED: METOPROLOL TARTRATE 25 MG TABLET PO SCH (21:00)
[2020-10-20] MEDS: SENNOSIDES 1 TABLET PO SCH (21:30)
[2020-10-20] MEDS: METOPROLOL TARTRATE 25 MG TABLET PO SCH (21:30)
[2020-10-21] MEDS: ACETAMINOPHEN 500 MG TABLET PO PRN ×2 (03:13→12:39)
[2020-10-21] MEDS: 0.9 % SODIUM CHLORIDE 10 ML SYRINGE IV SCH ×3 (05:46→08:27)
[2020-10-21] MEDS: metroNIDAZOLE 500 MG/100 ML BAG IV SCH (05:46)
[2020-10-21 07:08] LABS: Basophils # (Auto) 0.07 K/mcL (0.00-0.20); Basophils % (Auto) 0.6 % (0.0-2.0); Eosinophils # (Auto) 0.45 K/mcL (0.00-0.70); Eosinophils % (Auto) 3.8 % (0.0-7.0); Hematocrit 28.2 % (36.0-48.0); Hemoglobin 8.3 g/dL (12.0-15.0); Lymphocytes # (Auto) 1.24 K/mcL (1.50-4.80); Lymphocytes % (Auto) 10.5 % (15.0-49.0); Mean Cell Volume 95.3 fL (80.0-100.0); Mean Corpuscular HGB Conc 29.4 g/dL (31.0-36.0); Mean Platelet Volume 11.1 fL (7.4-10.4); Monocytes # (Auto) 0.74 K/mcL (0.10-0.90); Monocytes % (Auto) 6.3 % (1.0-12.0); Neutrophils % (Auto) 78.8 % (38.0-78.0); Platelet Count 546 K/mcL (140-440); RBC 2.96 M/mcL (4.00-5.20); Red Cell Distribution Width 18.1 % (11.5-14.5); WBC 11.8 K/mcL (4.5-11.0)
[2020-10-21] MEDS ORDERED: LEVOTHYROXINE 75 MCG TABLET PO SCH (07:30)
[2020-10-21] MEDS ORDERED: cefTRIAXone 2 GM VIAL ONE (07:48)
[2020-10-21 07:49] LABS: ALT/SGPT 13 U/L (<40); AST/SGOT 19 U/L (<32); Albumin 2.6 gm/dL (3.2-5.2); Alkaline Phosphatase 205 U/L (39-117); Bilirubin,Total < 0.2 mg/dL (0.1-1.0); Blood Urea Nitrogen 18 mg/dL (8-23); Carbon Dioxide 29 mmol/L (22-30); Chloride 112 mmol/L (96-108); Globulin 2.5 gm/dL (2.2-3.7); Glomerular Filtration Rate 41; Glucose 94 mg/dL (70-105)
--- NOTE | 2020-10-21 07:53 | Operative Note ---
DATE OF OPERATION: 10/16/2020 PREOPERATIVE DIAGNOSIS: Acute cholecystitis with cholelithiasis. POSTOPERATIVE DIAGNOSIS: Acute cholecystitis with cholelithiasis and chronic inflammatory perihepatic inflammation and scarring. PROCEDURE: Laparoscopic cholecystectomy. SURGEON: Pratibha Vargas MD FINDINGS: Severely inflamed gallbladder with acute and chronic perihepatic inflammation and scarring and multiple gallstones. DESCRIPTION OF PROCEDURE: Under general anesthesia, the patient's abdomen was prepped and draped in a sterile field. Supraumbilical incision was made. Veress needle was inserted uneventfully. Abdomen was insufflated without difficulty. A 12 mm port was placed. Laparoscope was placed. Upon placing the laparoscope, it was apparent that there was severely inflamed gallbladder with acute and chronic adhesions that totally plastered the liver against the peritoneum. These adhesions and scarring were suggestive of perihepatitis. The gallbladder was densely inflamed. It was decompressed. Under videoscopic guidance, a 12 mm port and two 5 mm ports were placed. The infundibulum was grasped and all of the chronic adhesions were down to the infundibulum using electrocautery and blunt dissection. Cystic duct was dissected. It was clipped with the Endo STACIE stapler close to the gallbladder. Cystic artery had two branches, which were followed back to the gallbladder, clipped with four clips and divided on the wall of the gallbladder. The gallbladder was then retrieved. There was oozing from the gallbladder bed. It was felt that this could be better controlled if the adhesions between the liver and the peritoneum were released. This was done until the liver rested easily over the colon and omentum. Irrigation was carried out. A Brennon drain was placed in the subhepatic space. The patient tolerated the procedure well. CO2 was allowed to escape from the abdomen and the ports were removed. The fascia at the umbilicus was closed with interrupted 2-0 Vicryl. Skin incisions were closed with eder. Tegaderm dressings were placed. A Brennon drain was secured with 2-0 nylon. The patient tolerated the procedure well. She was awakened, transferred to a bed, and taken to the postanesthetic care unit in satisfactory condition. LCS:cedrick Job ID: [id number] Doc ID: [id number] Pratibha Vargas M.D.
[2020-10-21] MEDS: APIXABAN 5 MG TABLET PO SCH (08:00)
[2020-10-21] MEDS: GABAPENTIN 100 MG CAPSULE PO SCH (08:01)
[2020-10-21] MEDS: METOPROLOL TARTRATE 25 MG TABLET PO SCH (08:02)
[2020-10-21] MEDS: SENNOSIDES 1 TABLET PO SCH (08:05)
[2020-10-21] MEDS ORDERED: cefTRIAXone 2 GM in DEXTROSE 5% IN WATER 50 ML IV SCH (09:00)
--- NOTE | 2020-10-21 11:17 | Discharge Summary ---
Discharge Provider Provider Patient information: Note initiated : 10/21/20 at 11:15 am Service Date, if different from initiated Date: [] Patient: Gladis Lim 85 y/o F admitted on 10/15/20 for abdominal pain. Chief Complaint: [] Date of admission: 10/15/20 01:23 Discharge date: 10/21/20 Primary care physician: Jaime Gonzáles Consults: 10/15/20 Consult to Physician [CONS] Stat Comment: Consulting Provider: Abel Rizo Reason For Exam: Physician to Consult Consult to Physician [CONS] Stat Comment: Consulting Provider: Pratibha Vargas Reason For Exam: Physician to Consult Discharge Meds Discharge Medications Home Medications levothyroxine 75 mcg PO DAILY 05/11/16 [History Confirmed 10/15/20 Last Taken Unknown] Combivent Respimat 1 puff INHALATION DAILY 10/15/20 [History Confirmed 10/15/20 Last Taken Unknown] Eliquis 2.5 mg PO BID 10/15/20 [History Confirmed 10/15/20 Last Taken Unknown] acetaminophen 650 mg PO Q6H PRN 10/15/20 [History Confirmed 10/15/20 Last Taken Unknown] bisacodyl [Dulcolax (bisacodyl)] 10 mg PA PRN PRN 10/15/20 [History Confirmed 10/15/20 Last Taken Unknown] gabapentin 100 mg PO TID 10/15/20 [History Confirmed 10/15/20 Last Taken Unknown] metolazone 2.5 mg PO WEEKLY 10/15/20 [History Confirmed 10/15/20 Last Taken Unknown] metoprolol succinate 25 mg PO BID 10/15/20 [History Confirmed 10/15/20 Last Taken Unknown] nitroglycerin 0.4 mg SUBLINGUAL Q5M PRN 10/15/20 [History Confirmed 10/15/20 Last Taken Unknown] potassium chloride 20 meq PO QDAY 10/15/20 [History Confirmed 10/15/20 Last Taken Unknown] simethicone 80 mg PO Q6HP PRN 10/15/20 [History Confirmed 10/15/20 Last Taken Unknown] levofloxacin 500 mg PO Q24H 9 Days #9 tab 10/21/20 [Rx Last Taken Unknown] metoprolol tartrate 12.5 mg PO BID #60 tab 10/21/20 [Rx Last Taken Unknown] polyethylene glycol 3350 [Miralax] 17 g PO DAILYP PRN #30 ea 10/21/20 [Rx Last Taken Unknown] COURSE Hospital Course Hospital course: Ms. Lim is a 85 year old female with a history of A. fib, chronic kidney disease, hypothyroidism, possible history of stroke. The patient presented to the ED with a low chest pain/abdominal pain in the epigastric and upper abdomen described as are achy and sharp and seem to develop after eating. In the ED she was found have a leukocytosis and had a CT abdomen pelvis and a ultrasound which showed acute cholecystitis. Surgery was contacted and asked hospitalist to comanage given comorbidities. 10/16 General surgery planning for cholecystectomy tomorrow, holding eliquis. Discontinued Cefepime, started Ceftriaxone, continued Metronidazole. 10/17 Doing ok post op however confused, attempted to call Daughter but no answer. 10/18 Holding Toprol for hypotension, replaced potassium. More confused and hallucinating, uncertain what her baseline cognition is but has cognitive impairment per documents. Developed atrial fibrillation with RVR, started Lopressor and IV fluid bolus, transferred to PCU. Central line placed for difficult access. Converted back to normal sinus rythm. 10/19 Improved vitals but still confused and hallucinating-probably delirium. Goals of care discussed with family, will wait for encephalopathy to improve then discuss goals of care with the patient. 10/20 Resting comfortably this morning, still hallucinating when awake per staff. Start Lopressor 25 mg BID. Transfer to med/surg. 10/21 Hallucinations resolved, significantly improved cognition may be near baseline. General surgery ok with discharge, recommended completing 14 days of antibiotics. General surgery will address abdominal drain at discharge. Decrease Lopressor to 12.5 mg BID. Discharged to SNF. Did not resume opioids at discharge from privous home medications. Discharged only with Tylenol. Post hospital follow up; -abdominal drain removal per general surgery. -goals of care discussions, code status -avoid opioids if possible. Physical Exam Head: Atraumatic, normal inspection. Eyes: normal appearance, no scleral icterus. Neck: full ROM, central line right IJ Respiratory: no respiratory distress. Cardiovascular: normal rate and rhythm, S1, S2. GI/Abdominal: abdominal binder, abdominal drain, improved abdominal tenderness Extremities: full range of motion, nontender. Neurological: II-XII intact, intact motor, intact sensation. Psychiatric: improved cognition, likely near baseline Skin: warm, normal color Discharge diagnosis: Acute cholecystitis Secondary discharge diagnosis: #Encephalopathy w/ hallucinations, likely delirium #Multiple masses on CT scans of uncertain etiology, concern for metastatic malignancy #Recent UTI, treated #A. 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 #Cognitive impairment Time Spent with Patient Time attestation: Total time spent providing and/or coordinating discharge services: EXAM Constitutional Vitals: Temp Pulse Resp BP Pulse Ox 97.7 F 59 L 16 104/53 94 10/21/20 08:00 10/21/20 08:00 10/21/20 08:00 10/21/20 08:00 10/21/20 08:00 Discharge Data Data Completed and Pending Labs on day of discharge: Labs from last 24 hours 10/21/20 10/21/20 05:46 05:46 WBC 11.8 H RBC 2.96 L Hgb 8.3 L Hct 28.2 L MCV 95.3 MCH 28.0 MCHC 29.4 L RDW 18.1 H Plt Count 546 H MPV 11.1 H Neut % (Auto) 78.8 H Lymph % (Auto) 10.5 L [place] % (Auto) 6.3 Eos % (Auto) 3.8 Baso % (Auto) 0.6 Lymph # (Auto) 1.24 L [place] # (Auto) 0.74 Eos # (Auto) 0.45 Baso # (Auto) 0.07 Absolute Neutrophils 9.31 H Sodium 145 Potassium 3.8 Chloride 112 H Carbon Dioxide 29 Anion Gap 4.0 L BUN 18 Creatinine 1.2 H GFR Calculation 41 Glucose 94 Calcium 8.0 L Total Bilirubin < 0.2 AST 19 ALT 13 Alkaline Phosphatase 205 H Total Protein 5.1 L Albumin 2.6 L Globulin 2.5 Albumin/Globulin Ratio 1.0 Discharge Plan Patient/Caregiver Discharge Instructions Activity: as per physical therapy Diet: Low Sodium (2gm) Prescriptions: New metoprolol tartrate 25 mg Tablet 12.5 mg PO BID Qty: 60 RF: 4 polyethylene glycol 3350 [Miralax] 17 gram Powder In Packet 17 g PO DAILYP PRN (Reason: Constipation) Qty: 30 RF: 0 levofloxacin 500 mg tablet 500 mg PO Q24H 9 Days Qty: 9 RF: 0 Continued levothyroxine 50 MCG tablet 75 mcg PO DAILY RF: 0 metoprolol succinate 25 mg Capsule,Sprinkle,Er 24hr 25 mg PO BID RF: 0 bisacodyl [Dulcolax (bisacodyl)] 10 mg Suppository 10 mg PA PRN PRN (Reason: Pain) RF: 0 gabapentin 100 mg Capsule 100 mg PO TID RF: 0 Eliquis 2.5 mg Tablet 2.5 mg PO BID RF: 0 Combivent Respimat 20-100 mcg/actuation Mist 1 puff INHALATION DAILY RF: 0 metolazone 2.5 mg Tablet 2.5 mg PO WEEKLY RF: 0 nitroglycerin 0.4 mg Tablet, Sublingual 0.4 mg SUBLINGUAL Q5M PRN (Reason: Chest Pain) RF: 0 simethicone 80 mg Tablet,Chewable 80 mg PO Q6HP PRN (Reason: epigastric pain) RF: 0 potassium chloride 20 mEq Tablet Extended Release 20 meq PO QDAY RF: 0 acetaminophen 325 mg Capsule 650 mg PO Q6H PRN (Reason: Pain) RF: 0 Discontinued hydrocodone-acetaminophen 5-325 mg Tablet 1 tab PO QHS RF: 0 nitrofurantoin monohyd/m-cryst [Macrobid] 100 mg Capsule 100 mg PO BID RF: 0 morphine 20 mg/5 mL (4 mg/mL) Solution 1 mg PO Q2HP PRN (Reason: Pain) RF: 0 Other Ambulatory Orders: Wound Care/Dressings (Routine) Location: None Selected Ordered By: Pop Hernandez OT Discharge Order (Routine) Location: None Selected Ordered By: Pop Hernandez Physical Therapy at Discharge - General (Routine) Location: None Selected Ordered By: Pop Hernandez Follow Up Plan Follow up with: Pratibha Vargas MD [Physician] - Jaime Gonzáles MD [Primary Care Provider] - Patient Disposition: Xfer SNF Rehab Potential: Fair I certify that the patient requires SNF services: Yes Overall status at discharge: patient is progressing back to baseline Discharge Orders: Discharge Order (Routine); Ordered 10/21/20 Ordered By: Pop Hernandez
[2020-10-21] MEDS ORDERED: METOPROLOL TARTRATE 25 MG TABLET PO SCH (21:00)
== END 2020-10-21 13:39 | DRG 417 ==
LOC: ED 19:40 → ICU 10-15 01:23 → MEDSUR 10-20 12:03
PROVIDERS: ADMIT Internal Medicine; ATTEND Internal Medicine